=== PATIENT | female | born 1970 | race Caucasian/White ===

== ENCOUNTER 2018-04-13 05:50 | Emergency (ER) | payer OTHER, SELFPAY ==
[2018-04-13 05:58] VITALS: BP 149/86; PULSE 93; RESP 15; TEMP 36.3; O2SAT 97
--- NOTE | 2018-04-13 06:08 | W.ED.GENAD ---
Discharge Plan Disposition Patient Disposition: HOME Condition: Good Discharge Details Chief Complaint: RespSymp Clinical Impression: URI (upper respiratory infection), Acute right otitis media Primary Care Provider: Claritza Winter ED Provider: Rishi Aguiar Home Meds and New Rx's Prescriptions: New azithromycin 250 mg tablet See Label Instructions .ROUTE .COMPLEX Qty: 6 RF: 0 No Action levothyroxine 125 MCG tablet 125 mcg PO DAILY RF: 0 naproxen sodium [Aleve] 220 MG capsule 660 mg PO DAILY RF: 0 omeprazole 40 MG capsule,delayed release(DR/EC) 40 mg PO DAILY RF: 0 sertraline 25 MG tablet 25 mg PO DAILY RF: 0 cyclobenzaprine 10 MG tablet 10 mg PO Q8H PRN PRN (Reason: Pain) Qty: 20 RF: 0 Discharge Instructions Instructions: Otitis Media (ED) Additional Instructions: If you do not notice any improvement of your symptoms over the next 24 hours please take the antibiotic as directed. If you notice any worsening of your symptoms, or any new symptoms such as vomiting, diarrhea, fever, chills, shortness of breath, chest pain, numbness, weakness, or fainting , please return immediately to the emergency department for reevaluation. Please follow up with your primary care provider as soon as possible for reassessment and reevaluation. As always, it was a pleasure participating in your medical care today. Referrals: Claritza Winter [Primary Care Provider] - Medical Decision Making This is a pleasant 47-year-old female who presents with complaint of right ear pain, cough, and mild congestion. Physical exam demonstrates a right-sided otitis media, no concerning lung sounds, vital signs are reassuring with no significant tachycardia tachypnea or hypoxemia. No signs of meningitis, nuchal rigidity or other abnormality. Patient signs and symptoms are clinically consistent with an upper respiratory infection and otitis media. I feel it is most likely viral in origin, however due to the notable severity of the otitis media do feel that antibiotics are reasonable. Patient has a penicillin allergy. Will prescribe azithromycin with recommendations to take if she does not have improvement in the next 24-48 hours. We discussed red flags for which to return and the patient understands. I have extensively reviewed the treatment plan and discharge instructions with the patient and their family. I have addressed all patient concerns at this time. The patient and family was made aware of what symptoms to monitor for that would warrant a return to the emergency department. Discussed the plan with the patient and family, they demonstrate verbal understanding and agreement with our assessment and plan at this time. HPI General Date/Time Provider Initiated Documentation: 04/13/18 06:01. HPI Narrative: This is a 47-year-old female who presents today for evaluation of cough, congestion, and right ear pain. The cough and congestion with mild sore throat started 2 days ago, she noticed some right-sided ear pain that started this morning. She denies any difficulty swallowing, difficulty breathing, chest pain or shortness of breath. She denies any significant hearing difficulties. She denies any associated fever. Has an allergy to Tylenol and ibuprofen however she has been taking DayQuil and NyQuil at home without difficulty. Patient denies any other associated symptoms. Patient denies any neck pain or neck stiffness. She does states she has noted some mild improvement with the NyQuil and DayQuil. Patient denies any recent surgeries. Patient denies any IV or illicit drug use or any pertinent family history. Patient does smoke, but has not been able to for the last few days secondary to feeling ill. Related Data Home Medications Medication Instructions Recorded Confirmed levothyroxine 125 mcg PO DAILY 10/16/13 05/18/17 naproxen sodium [Aleve] 660 mg PO DAILY 10/16/13 05/18/17 omeprazole 40 mg PO DAILY 03/15/15 05/18/17 cyclobenzaprine 10 mg PO Q8H PRN PRN #20 tab 03/09/17 05/18/17 sertraline 25 mg PO DAILY 03/09/17 05/18/17 azithromycin See Label Instructions .ROUTE 04/13/18 .COMPLEX #6 tab Previous Rx's Medication Instructions Recorded cyclobenzaprine 10 mg PO Q8H PRN PRN #20 tab 03/09/17 azithromycin See Label Instructions .ROUTE 04/13/18 .COMPLEX #6 tab Allergies Allergy/AdvReac Type Severity Reaction Status Date / Time aspirin Allergy Severe Anaphylaxsi Unverified 04/13/18 06:02 s Penicillins Allergy Intermediate Hives Unverified 04/13/18 06:02 acetaminophen [From Tylenol] Allergy Mild Skin Rash Unverified 04/13/18 06:02 ibuprofen Allergy Mild Skin Rash Unverified 04/13/18 06:02 latex Allergy Mild Skin Rash Unverified 04/13/18 06:02 venom-honey bee Allergy Mild Unverified 04/13/18 06:02 [bee venom (honey bee)] General Stated Complaint: RespSymp ZAK: 4 Review of Systems Review of Systems All systems reviewed & are unremarkable except as noted in HPI and below PFSH Hypothyroidism Obesity Tobacco dependence EGD - IV Sedation (03/15/15) Medical History Hypothyroidism Obesity Tobacco dependence Social History Smoking/Tobacco Use Status: Current every day Surgical History EGD - IV Sedation (03/15/15) Social History Smoking/Tobacco Use Status: Current every day Exam Narrative Exam Narrative: 1.Const: Well-nourished, Well-developed, appearing stated age 2.Eyes: PERRL, no conjunctival injection, and symmetrical lids. 3.ENT: Atraumatic external nose and ears. Moist MM. Neck: Symmetric, trachea midline, No thyromegaly. No evidence of significant oropharyngeal erythema, tonsillar exudates, posterior oropharynx airway compromise, or other abnormalities. No significant cervical lymphadenopathy. Left tympanic membrane is normal, right tympanic membrane demonstrates erythema, effusion, and bulging of the TM. Patient demonstrates good movement of cervical neck. There is no nuchal rigidity, no nuchal tenderness. Patient is able to flex the neck without any difficulty or significant pain. Negative Kernig's and Brudzinski sign. 4.CVS: +S1/S2, No murmurs or gallops. Peripheral pulses 2+ and equal in all extremities. Brisk capillary refill in all extremities. 5.RESP: Unlabored respiratory effort. Clear to auscultation bilaterally. No wheezes rales or rhonchi 6.GI: Soft, Nontender/Nondistended, No hepatosplenomegaly. No guarding or rebound. 7.MSK: Normocephalic/Atraumatic, Extremities w/o deformity or ttp No cyanosis or clubbing, Normal movement of all extremities 8.Skin: Warm, Dry. No rashes or lesions. 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 Sensation grossly intact, no focal neurologic deficits. 10.Psych: (AAO) x3. Appropriate mood and affect Course Vital Signs Temperature 36.3 C L 04/13/18 05:58 Pulse 93 H 04/13/18 05:58 Respiratory Rate 15 04/13/18 05:58 Blood Pressure 149/86 H 04/13/18 05:58 Pulse Oximetry 97 04/13/18 05:58 Temperature 36.3 C L 04/13/18 05:58 Temperature Source Temporal Artery Scan 04/13/18 05:58 Pulse 93 H 04/13/18 05:58 Respiratory Rate 15 04/13/18 05:58 Respiratory Effort Non-Labored 04/13/18 06:01 Respiratory Depth Normal 04/13/18 06:01 Blood Pressure 149/86 H 04/13/18 05:58 Blood Pressure Position Sitting 04/13/18 05:58 Pulse Oximetry 97 04/13/18 05:58 Oxygen Delivery Method Room Air 04/13/18 05:58 Oxygen Flow Rate 0 04/13/18 05:58 Pain Level 5 04/13/18 05:58
[2018-04-13 06:18] VITALS: BP 149/86; PULSE 93; RESP 15; TEMP 36.3; O2SAT 97
== END 2018-04-13 06:18 | disposition home or self-care (01) ==
LOC: ER 06:21
PROVIDERS: Emergency Provider Student in an Organized Health Care Education/Training Program; PCP Nurse Practitioner Family
DX: J06.9 Acute upper respiratory infection, unspecified (principal); H66.91 Otitis media, unspecified, right ear
CPT/HCPCS: 99283

== ENCOUNTER 2018-05-15 07:01 | Emergency (ER) | payer OTHER, SELFPAY ==
[2018-05-15 07:04] VITALS: BP 138/79; PULSE 92; RESP 18; TEMP 36.5; O2SAT 100
[2018-05-15] MEDS: Naproxen 250 MG TAB 500 MG PO (07:28)
[2018-05-15] MEDS: Cyclobenzaprine 10 MG TAB PO (07:28)
--- NOTE | 2018-05-15 07:34 | ED.GENADUL_ITS ---
Discharge Plan Disposition Patient Disposition: HOME Condition: Good Discharge Details Chief Complaint: Nk/Back Pain Clinical Impression: Lower back injury Primary Care Provider: Claritza Winter ED Provider: Jordon Solo Meds and New Rx's Prescriptions: New cyclobenzaprine 10 mg tablet 10 mg PO TID PRN (Reason: muscle spasm) Qty: 20 RF: 0 Continued levothyroxine 125 MCG tablet 125 mcg PO DAILY RF: 0 omeprazole 40 MG capsule,delayed release(DR/EC) 40 mg PO DAILY RF: 0 hydroxychloroquine 200 mg Tablet 200 mg PO BID RF: 0 sertraline 25 MG tablet 25 mg PO DAILY RF: 0 Changed naproxen sodium [Aleve] 220 MG capsule 2 tab PO BID Qty: 0 RF: 0 Discharge Instructions Additional Instructions: Take it easy over the weekend locus but stay active. Aleve twice a day. Flexeril as needed. Heat is likely to help. Follow-up with primary care on Friday for reevaluation. Return to the emergency department for worsening pain, abdominal pain, bladder or bowel dysfunction, numbness or tingling, weakness. Stand Alone Forms: Work Release Referrals: Claritza Winter [Primary Care Provider] - Medical Decision Making Patient presenting with left lower back/buttock pain related to twisting injury yesterday. She has no neurologic symptoms and no neurologic findings. Strength is normal though range of motion is limited due to pain. Sensation to intact. She is able to ambulate but limps because of pain. She tolerates Naprosyn. She has also been on Flexeril in the past. She will be started on both of these again. She has no spinal tenderness and did not actually strike the ground. X- rays not indicated. Follow-up with primary care on Friday for reevaluation. Off over the weekend. Return to ED for worsening pain, abdominal pain, neurologic changes. HPI General Mode of arrival: ambulatory . Date/Time Provider Initiated Documentation: 05/15/18 07:17 . Limitations to Documentation: no limitations . Information obtained by: patient . HPI Narrative: Patient presents to ED with a left buttock pain radiating down to about the knee. Patient reports slipping on the ice and twisting yesterday. She had some pain yesterday but did not think much of it. She did not actually fall and hit the ground. This morning she has had increased pain and discomfort posteriorly. She has decreased range of motion. Trying to drive to work was very painful. She has no neurologic symptoms. She denies numbness, weakness, bladder or bowel dysfunction. She denies upper back pain, chest pain, abdominal pain. She did try to go to work but did not tolerate it and came here for evaluation. Related Data Home Medications Medication Instructions Recorded Confirmed levothyroxine 125 mcg PO DAILY 10/16/13 05/15/18 omeprazole 40 mg PO DAILY 03/15/15 05/15/18 sertraline 25 mg PO DAILY 03/09/17 05/15/18 cyclobenzaprine 10 mg PO TID PRN #20 tab 05/15/18 hydroxychloroquine 200 mg PO BID 05/15/18 05/15/18 naproxen sodium [Aleve] 2 tab PO BID #0 cap 05/15/18 05/15/18 Previous Rx's Medication Instructions Recorded cyclobenzaprine 10 mg PO TID PRN #20 tab 05/15/18 naproxen sodium [Aleve] 2 tab PO BID #0 cap 05/15/18 Allergies Allergy/AdvReac Type Severity Reaction Status Date / Time aspirin Allergy Severe Anaphylaxsi Unverified 05/15/18 07:11 s Penicillins Allergy Intermediate Hives Unverified 05/15/18 07:11 acetaminophen [From Tylenol] Allergy Mild Skin Rash Unverified 05/15/18 07:11 ibuprofen Allergy Mild Skin Rash Unverified 05/15/18 07:11 latex Allergy Mild Skin Rash Unverified 05/15/18 07:11 venom-honey bee Allergy Mild Unverified 05/15/18 07:11 [bee venom (honey bee)] General Stated Complaint: Nk/Back Pain ZAK: 4 Review of Systems Constitutional Denies fever(s) and Denies weakness Cardiovascular Denies chest pain and Denies dyspnea Respiratory Denies cough and Denies dyspnea Gastrointestinal Denies abdominal pain, Denies nausea and Denies vomiting Genitourinary Denies difficulty voiding, Denies dysuria, Denies pelvic pain, Denies flank pain, Denies urinary hesitancy and Denies urinary urgency Musculoskeletal Reports back pain, Reports limited range of motion, Denies muscle weakness, Denies numbness and Denies tingling Integumentary/Breasts Denies rash Neurologic Denies focal weakness, Denies numbness, Denies sensory deficit, Denies tingling, Denies paresthesias and Denies weakness PFSH Medical History Hypothyroidism Obesity Tobacco dependence Surgical History EGD - IV Sedation (03/15/15) Social History Smoking/Tobacco Use Status: Current every day Exam Const General: cooperative and uncomfortable Nutritional Appearance: obese morbidly obese Orientation: alert and oriented x3 HENMT Head: normocephalic and atraumatic Neck Neck: trachea midline and supple Back/Spine/Pelvis Back: no CVA tenderness and back tenderness Thoracic/Lumbar Spine: bend over test abnormal (unable to bend over), pain with thoraco-lumbar ROM, thoraco-lumbar ROM limited, No thoracic spinal tenderness and No lumbar spinal tenderness Pelvis: buttock tenderness on the left Neuro General: alert, oriented x3, no focal motor deficits and CN's II-XI intact bilaterally Sensory Exam: no sensory deficits noted Course Vital Signs Temperature 97.7 F 05/15/18 07:04 Pulse 92 H 05/15/18 07:04 Respiratory Rate 18 05/15/18 07:04 Blood Pressure 138/79 05/15/18 07:04 Pulse Oximetry 100 05/15/18 07:04 Temperature 97.7 F 05/15/18 07:04 Temperature Source Temporal Artery Scan 05/15/18 07:04 Pulse 92 H 05/15/18 07:04 Respiratory Rate 18 05/15/18 07:04 Respiratory Effort Non-Labored 05/15/18 07:10 Blood Pressure 138/79 05/15/18 07:04 Blood Pressure Position Sitting 05/15/18 07:04 Pulse Oximetry 100 05/15/18 07:04 Oxygen Delivery Method Room Air 05/15/18 07:04 Oxygen Flow Rate 0 05/15/18 07:04 Pain Level 5 05/15/18 07:14
== END 2018-05-15 07:47 | disposition home or self-care (01) ==
PROVIDERS: Emergency Provider Emergency Medicine; PCP Nurse Practitioner Family
DX: M54.5 Low back pain (principal)
CPT/HCPCS: 99283

== ENCOUNTER 2018-07-29 16:12 | Outpatient (REF) | payer OTHER, SELFPAY ==
[2018-07-29 22:59] LABS: FREE T4 0.76 ng/dL (0.76-1.46)
== END 2018-07-29 16:32 ==
LOC: NCHCN 16:12
PROVIDERS: PCP Nurse Practitioner Family; Visit Provider Nurse Practitioner Family
DX: E03.9 Hypothyroidism, unspecified (principal)
CPT/HCPCS: 84439; 84443

== ENCOUNTER 2018-09-16 08:35 | Outpatient (REF) | payer OTHER, SELFPAY ==
[2018-09-16 12:52] LABS: TSH (W/Ref FT4) 0.26 uIU/mL (0.358-3.74)
[2018-09-16 13:45] LABS: FREE T4 1.33 ng/dL (0.76-1.46)
== END 2018-09-16 08:55 ==
LOC: NCHCN 08:35
PROVIDERS: PCP Nurse Practitioner Family; Visit Provider Nurse Practitioner Family
DX: E03.9 Hypothyroidism, unspecified (principal)
CPT/HCPCS: 84439; 84443

== ENCOUNTER 2018-11-02 12:04 | Outpatient (REF) | payer OTHER, SELFPAY ==
[2018-11-02 21:32] LABS: TSH (W/Ref FT4) 0.48 uIU/mL (0.358-3.74)
== END 2018-11-02 12:24 ==
LOC: NCHCN 12:04
PROVIDERS: PCP Nurse Practitioner Family; Visit Provider Nurse Practitioner Family
DX: E03.9 Hypothyroidism, unspecified (principal)
CPT/HCPCS: 84443

== ENCOUNTER 2019-06-24 09:47 | Outpatient (REF) | payer OTHER, SELFPAY ==
[2019-06-24 12:55] LABS: TSH (W/Ref FT4) 3.41 uIU/mL (0.36-3.74)
== END 2019-06-24 10:07 ==
LOC: NCHCN 09:47
PROVIDERS: PCP Nurse Practitioner Family; Visit Provider Nurse Practitioner Family
DX: E03.9 Hypothyroidism, unspecified (principal)
CPT/HCPCS: 84443

== ENCOUNTER 2019-06-25 11:23 | Outpatient (REF) | payer OTHER, SELFPAY ==
--- NOTE | 2019-06-25 10:40 | PAPFT_PTH ---
PATIENT: Dari Montano LOC: [facility]#:[id number] AGE/SX: 48/F ROOM: RE06/25/[address]: Claritza Winter : 1970 BED: DIS: 06/25/2019 SPEC #: [id number] RECD: 06/25/19 12:56 STATUS: ELVER RECampos #: [id number] REINA: 06/25/19 10:[address]: Claritza Winter DEPT: [facility] Cytology RECD BY: Claire Leahy Tissues: 1 - CX/ENDOCX FOR PAP SMEARS Procedures: PAP THIN PREP/UVM Screening HPV DNA PROBE Comments: [id number]
== END 2019-06-25 11:43 ==
LOC: NCHCN 11:23
PROVIDERS: PCP Nurse Practitioner Family; Visit Provider Nurse Practitioner Family
DX: Z00.00 Encounter for general adult medical examination without abnormal findings (principal); Z12.4 Encounter for screening for malignant neoplasm of cervix; Z01.419 Encounter for gynecological examination (general) (routine) without abnormal findings; Z11.51 Encounter for screening for human papillomavirus (HPV)
CPT/HCPCS: 88142; 87624

== ENCOUNTER 2019-06-28 09:22 | Outpatient (CLI) | payer OTHER, SELFPAY ==
[2019-06-28 09:53] LABS: HCT 37.1 % (36.0-46.0); HGB 12.5 g/dL (12.0-15.5); Mean Corp. HGB Concentration 33.7 g/dL (32.0-36.0); Mean Corpuscular Hemoglobin 31.4 pg (27.0-33.0); Mean Corpuscular Volume 93.2 fL (80-95); Mean Platelet Volume 9.1 fL (8.0-11.0); Platelet Count 357 x1000/uL (130-400); RBC 3.98 m/cumm (4.00-5.20); RBC Distribution Width 14.3 % (11.7-14.6); White Blood Cell Count 12.74 k/cumm (4.4-10.8)
[2019-06-28 10:57] LABS: ALT 40 U/L (14-59); AST 22 U/L (15-37)
[2019-06-28 10:58] LABS: Cholesterol 203 mg/dL (<200); Triglyceride 302 mg/dL (<150)
== END 2019-06-28 09:42 ==
PROVIDERS: PCP Nurse Practitioner Family; Visit Provider Dermatology
DX: L40.0 Psoriasis vulgaris (principal); Z79.899 Other long term (current) drug therapy
CPT/HCPCS: 36415; 85027; 82465; 84450; 84460; 84478

== ENCOUNTER 2019-09-07 11:32 | Outpatient (REF) | payer OTHER, SELFPAY ==
[2019-09-08 09:09] LABS: COVID-19 RT-PCR UVMMC Result Negative (Negative)
== END 2019-09-07 11:52 ==
LOC: LBN 11:32
PROVIDERS: PCP Nurse Practitioner Family; Visit Provider Nurse Practitioner Adult Health
DX: Z11.59 Encounter for screening for other viral diseases (principal)
CPT/HCPCS: U0003

== ENCOUNTER 2019-09-30 04:18 | Outpatient (CLI) | payer OTHER, SELFPAY ==
[2019-09-30 07:24] LABS: HCT 37.3 % (36.0-46.0); HGB 12.7 g/dL (12.0-15.5); Mean Corpuscular Hemoglobin 32.7 pg (27.0-33.0); Mean Corpuscular Volume 96.1 fL (80-95); Mean Platelet Volume 9.5 fL (8.0-11.0); Platelet Count 285 x1000/uL (130-400); RBC 3.88 m/cumm (4.00-5.20); RBC Distribution Width 14.5 % (11.7-14.6); White Blood Cell Count 7.77 k/cumm (4.4-10.8)
[2019-09-30 08:11] LABS: ALT 73 U/L (14-59); AST 37 U/L (15-37)
[2019-09-30 08:14] LABS: Cholesterol 186 mg/dL (<200); Triglyceride 184 mg/dL (<150)
== END 2019-09-30 04:38 ==
PROVIDERS: PCP Nurse Practitioner Family; Visit Provider Dermatology
DX: L40.0 Psoriasis vulgaris (principal); Z79.899 Other long term (current) drug therapy
CPT/HCPCS: 36415; 85027; 82465; 84450; 84460; 84478

== ENCOUNTER 2019-10-22 09:25 | Outpatient (REF) | payer OTHER, SELFPAY ==
[2019-10-25 12:23] LABS: COVID-19 RT-PCR Result NEGATIVE (Negative)
== END 2019-10-22 09:45 ==
LOC: LBN 09:25
PROVIDERS: PCP Nurse Practitioner Family; Visit Provider Nurse Practitioner Adult Health
DX: Z20.828 Contact with and (suspected) exposure to other viral communicable diseases (principal)
CPT/HCPCS: U0003

== ENCOUNTER 2019-11-03 09:20 | Outpatient (REF) | payer OTHER, SELFPAY ==
[2019-11-06 07:20] LABS: SARS-CoV-2 RNA Undetected (Undetected); SARS-CoV-2 Specimen Source Nasopharynx
== END 2019-11-03 09:40 ==
LOC: LBN 09:20
PROVIDERS: PCP Nurse Practitioner Family; Visit Provider Nurse Practitioner Adult Health
DX: Z11.59 Encounter for screening for other viral diseases (principal)
CPT/HCPCS: U0003

== ENCOUNTER 2020-01-20 03:08 | Outpatient (CLI) | payer OTHER, SELFPAY ==
[2020-01-20 10:18] LABS: Abs Immature Grans 0.02 10^3/uL (0.0-0.06); Absolute Basophil Count 0.08 10^3/uL (0.0-0.2); Absolute Eosinophil Count 0.44 10^3/uL (0.0-0.7); Absolute Lymphocyte Count 2.69 10^3/uL (1.2-3.4); Absolute Monocyte Count 0.59 10^3/uL (0.1-0.8); Absolute Neutrophil Count 5.38 10^3/uL (1.2-6.7); Basophils % 0.9; Eosinophils % 4.8; HCT 36.8 % (36.0-46.0); HGB 12.3 g/dL (11.2-15.7); Immature Grans % 0.2; Lymphocytes % 29.2; MCH 32.2 pg (27.0-33.0); MCHC 33.4 % (32.0-36.0); MCV 96.3 fL (80-95); MPV 10.4 fL (8.0-11.0); Monocytes % 6.4; Neutrophils % 58.5; Nucleated RBC 0 %; Platelet Count 289 10^3/uL (130-400); RBC 3.82 10^6/uL (3.93-5.22); RDW 14.3 % (11.7-14.6); RDW-SD 50.1 fL
[2020-01-20 10:47] LABS: ALT 66 U/L (14-59); AST 30 U/L (15-37)
[2020-01-20 10:49] LABS: Cholesterol 195 mg/dL (<200); Triglyceride 387 mg/dL (<150)
== END 2020-01-20 03:28 ==
PROVIDERS: PCP Nurse Practitioner Family; Visit Provider Dermatology
DX: L40.0 Psoriasis vulgaris (principal); Z79.899 Other long term (current) drug therapy
CPT/HCPCS: 36415; 82465; 84450; 84460; 84478; 85025

== ENCOUNTER 2020-04-21 04:51 | Outpatient (CLI) | payer OTHER, SELFPAY ==
[2020-04-21 08:56] LABS: HGB 12.6 g/dL (11.2-15.7); MCH 32.2 pg (27.0-33.0); MCHC 33.2 % (32.0-36.0); MCV 97.2 fL (80-95); MPV 9.7 fL (8.0-11.0); Platelet Count 308 10^3/uL (130-400); RBC 3.91 10^6/uL (3.93-5.22); RDW 13.9 % (11.7-14.6); RDW-SD 48.9 fL; WBC 8.55 10^3/uL (4.4-10.8)
[2020-04-21 10:33] LABS: Cholesterol 211 mg/dL (<200); Triglyceride 244 mg/dL (<150)
[2020-04-21 10:37] LABS: ALT 51 U/L (14-59); AST 26 U/L (15-37)
== END 2020-04-21 05:11 ==
PROVIDERS: PCP Nurse Practitioner Family; Visit Provider Dermatology
DX: L40.0 Psoriasis vulgaris (principal); Z79.899 Other long term (current) drug therapy
CPT/HCPCS: 36415; 85027; 82465; 84450; 84460; 84478; 85025

== ENCOUNTER 2020-04-21 22:53 | Outpatient (REF) | payer OTHER, SELFPAY ==
[2020-04-21 22:12] LABS: ALT 52 U/L (14-59); AST 26 U/L (15-37); Albumin 3.9 g/dL (3.4-5.0); Alkaline Phosphatase 79 U/L (46-116); Anion Gap 9.8 mmol/L (3-11); BUN 18 mg/dL (7-18); Bilirubin, Total 0.2 mg/dL (0.2-1.0); CO2 27.2 mmol/L (21.0-32.0); CREATININE 0.92 mg/dL (0.55-1.02); Calcium 8.7 mg/dL (8.5-10.1); Calculated LDL 124 mg/dL (<100); Chloride 104 mmol/L (98-107); Cholesterol 213 mg/dL (<200); Glucose 98 mg/dL (74-106); HDL Cholesterol 30 mg/dL (40-60); Potassium 4.3 mmol/L (3.5-5.1); Sodium 141 mmol/L (136-145); TSH (W/Ref FT4) 4.83 uIU/mL (0.36-3.74); Total Protein 6.8 g/dL (6.4-8.2); Triglyceride 299 mg/dL (<150)
[2020-04-21 22:50] LABS: Hemoglobin A1C 5.7 % (<5.7)
[2020-04-22 00:08] LABS: FREE T4 1.04 ng/dL (0.76-1.46)
[2020-04-24 10:48] LABS: HIV-1/2 Ag & Ab Screen Negative (Negative)
[2020-04-24 14:15] LABS: HCV RNA Qualitative Undetected (Undetected)
== END 2020-04-21 23:13 ==
LOC: NCHCN 22:53
PROVIDERS: PCP Nurse Practitioner Family; Visit Provider Nurse Practitioner Family
DX: Z00.00 Encounter for general adult medical examination without abnormal findings (principal); R42 Dizziness and giddiness; K30 Functional dyspepsia; R05 Cough; Z13.1 Encounter for screening for diabetes mellitus; Z11.59 Encounter for screening for other viral diseases; Z11.4 Encounter for screening for human immunodeficiency virus [HIV]
CPT/HCPCS: 80053; 80061; 87389; 87522; 83036; 84439; 84443

== ENCOUNTER 2020-06-01 11:36 | Emergency (ER) | payer OTHER, SELFPAY ==
[2020-06-01 11:44] VITALS: BP 144/84; PULSE 103; RESP 18; TEMP 36.2; O2SAT 96
--- NOTE | 2020-06-01 12:05 | ED.GENADUL_ITS ---
Discharge Plan Disposition Patient Disposition: HOME Condition: Stable Discharge Details Clinical Impression: Acute knee pain Primary Care Provider: Claritza Winter ED Provider: Vikash Villatoro Home Meds and New Rx's Prescriptions: Continued levothyroxine 125 MCG tablet 125 mcg PO DAILY RF: 0 omeprazole 40 MG capsule,delayed release(DR/EC) 40 mg PO DAILY RF: 0 sertraline 25 MG tablet 25 mg PO DAILY RF: 0 methotrexate sodium 2.5 mg tablet See Rx Instructions .ROUTE .COMPLEX RF: 0 Discharge Instructions Instructions: Knee Pain (ED) Additional Instructions: X-ray is unremarkable. Use crutches and wear knee immobilizer as needed, advance activity as tolerated. Rest, elevate, cool compresses every 2 hours for 20 minutes. [id number] Tylenol as directed for discomfort. Please watch for new or worsening symptoms and return to the ER for any concerns. Lastly, I have given you the name and number of our local orthopedic provider and placed you on the orthopedic list. Please contact his office at your convenience for prompt outpatient reevaluation. Referrals: Robert Chen MD [ [facility] STAFF PHYSICIAN] - Discharge Data Discharge Date/Time-TO BE ENTERED AT DEPARTURE: 06/01/20 14:42 Medical Decision Making This is a 49-year-old female who felt a sudden pop and pain in her left knee while stepping out of a doorway. There was no fall to the ground or any real twisting mechanism. The presentation is interesting as it was acute in onset without any real trauma. She appears uncomfortable but nontoxic. Neuro, vascular, tendon intact. The knee exam is extremely guarded making for a difficult examination. She is afebrile, there is no erythema, warmth, no evidence of infection. Skin is intact. Patient has a negative Homans' sign. Extremely low suspicion for DVT, septic joint, cellulitis, etc. given her presentation. Will obtain x-ray for further evaluation of potential pathologic fracture, effusion, etc. Clinically this appears a more soft tissue in nature. Patient offered analgesia but declines. X-ray read by radiology as negative for acute fracture or dislocation. There is a joint effusion present. Discussed x-ray findings with patient. We discussed disposition. We will place the patient into a long-leg knee immobilizer and crutches, advancing activity as tolerated. She does not want a prescription for any additional pain medication and will focus on resting, elevating, [id number] Tylenol, etc. She was encouraged to return to the ER for new or worsening symptoms. I have placed her onto the orthopedic list and have given her the name and number of our local orthopedic team to help expedite outpatient care. Medical Records Medical records reviewed: Yes I reviewed the patient's medical records. HPI General Mode of arrival: wheelchair . Date/Time Provider Initiated Documentation: 06/01/20 11:38 . Limitations to Documentation: no limitations . Information obtained by: patient . HPI Narrative: This is a 49-year-old female, history of lupus, thyroid disease, presenting with acute left lateral knee pain. She states just prior to arrival she was stepping out of a doorway, and felt a sharp pain in her left knee. She denies falling to the ground, twisting, or really any traumatic injury. She states the pain is severe although she is able to bear weight. Reports that there is increased pain with movement, bearing weight, wiggling her toes. She feels occasional tingling in her toes. She denies any previous injury to the knee. She also denies any other injury. Denies any redness of her calf, swelling, pain. Denies chest pain or shortness of breath. She took a single Vicodin that she had left over at home. She describes hearing and feeling a popping sensation. Related Data Home Medications Medication Instructions Recorded Confirmed levothyroxine 125 mcg PO DAILY 10/16/13 06/01/20 omeprazole 40 mg PO DAILY 03/15/15 06/01/20 sertraline 25 mg PO DAILY 03/09/17 06/01/20 methotrexate sodium See Rx Instructions .ROUTE .COMPLEX 06/01/20 06/01/20 Allergies Allergy/AdvReac Type Severity Reaction Status Date / Time aspirin Allergy Severe Anaphylaxsi Unverified 06/01/20 11:46 s Penicillins Allergy Intermediate Hives Unverified 06/01/20 11:46 acetaminophen [From Tylenol] Allergy Mild Skin Rash Unverified 06/01/20 11:46 ibuprofen Allergy Mild Skin Rash Unverified 06/01/20 11:46 latex Allergy Mild Skin Rash Unverified 06/01/20 11:46 venom-honey bee Allergy Mild Unverified 06/01/20 11:46 [bee venom (honey bee)] General Stated Complaint: Orthopedic ZAK: 3 Review of Systems Constitutional Constitutional: Denies fever(s) Cardiovascular Cardiovascular: Denies chest pain and Denies dyspnea Respiratory Respiratory: Denies dyspnea Musculoskeletal Musculoskeletal: Reports arthralgias, Denies numbness, Reports stiffness and Reports tingling Integumentary/Breasts Skin/Breast: Denies erythema Neurologic Neurologic: Denies numbness and Reports tingling PFSH Medical History Hypothyroidism Obesity Tobacco dependence Surgical History EGD - IV Sedation (03/15/15) DR.TERRY SCHWAB Social History Smoking/Tobacco Use Status: Current every day Tobacco Type: cigarettes Smoking risk assessment performed?: Yes Alcohol Intake: never Drug use: Never Substance use type: does not use Do you feel safe at home: Yes Do you feel safe in your relationship?: Yes Exam Const General: cooperative, healthy appearing and no acute distress Orientation: alert and awake HENCA Head: normal to inspection, normocephalic and atraumatic Eyes General: appearance normal, both eyes and all related structures Conjunctivae: conjunctivae normal Sclera: sclerae normal Neck Neck: normal visual inspection, full ROM, trachea midline and supple Resp Effort & Inspection: normal respiratory effort and able to speak in complete sentences Auscultation: clear to auscultation bilaterally Cardio Rate: regular rate Rhythm: regular rhythm Back/Spine/Pelvis Back: No back tenderness Skin General skin exam: no rashes or lesions noted Neuro General: patient alert, patient awake, moves all extremities and no focal motor deficits Cognition: normal cognition Speech: speech normal Gait: antalgic Motor: muscle tone normal throughout Sensory Exam: no sensory deficits noted Extrem Left lower extremity: normal to inspection, normal capillary refill, hip/thigh Details: normal to inspection and normal ROM; no tenderness and no swelling and knee (Examination is extremely guarded, making for difficult exam) Details: normal to inspection, tenderness, abnormal ROM Details: held in an abnormal fashion Details: in extension, pain with active ROM and with range as follows (Full extension, limited flexion secondary to pain) and knee ligament exam abnormal Details: anterior drawer test Details: pain noted, valgus stress test Details: pain noted and varus stress test Details: pain noted; no swelling Other: Calf unremarkable. Negative Homans' sign. Neuro, vascular, tendon intact. Psych Appearance: grossly normal Mental Status: mental status grossly normal Course Vital Signs Vital signs: Vital Signs Temperature 36.2 C L 06/01/20 11:44 Pulse 103 H 06/01/20 11:44 Respiratory Rate 18 06/01/20 11:44 Blood Pressure 144/84 H 06/01/20 11:44 Pulse Oximetry 96 06/01/20 11:44 Temperature 36.2 C L 06/01/20 11:44 Temperature Source Skin 06/01/20 11:44 Pulse 103 H 06/01/20 11:44 Respiratory Rate 18 06/01/20 11:44 Respiratory Effort Non-Labored 06/01/20 11:49 Blood Pressure 144/84 H 06/01/20 11:44 Blood Pressure Position Sitting 06/01/20 11:44 Pulse Oximetry 96 06/01/20 11:44 Oxygen Delivery Method Room Air 06/01/20 11:44 Oxygen Flow Rate 0 06/01/20 11:44 Pain Level 8 06/01/20 11:44
--- NOTE | 2020-06-01 12:15 | DI.RAD_ITS ---
EXAM: XR KNEE LT 4V+ CLINICAL HISTORY: stepped, heard pop, 10/10 pain lateral. TECHNIQUE: 2D digital imaging was performed. COMPARISON: No exams were available for comparison FINDINGS: BONES: No acute fracture is present. No bony destructive lesion is seen. JOINTS: The knee is normally aligned. Joint effusion. SOFT TISSUE: Normal. IMPRESSION: No acute fracture or dislocation. Joint effusion is present. DATA REPOSITORY: RADIATION DOSE DELIVERED:
== END 2020-06-01 14:42 | disposition home or self-care (01) ==
PROVIDERS: Emergency Provider Physician Assistant; PCP Nurse Practitioner Family
DX: M25.562 Pain in left knee (principal)
CPT/HCPCS: 29505; 99283; 73564

== ENCOUNTER 2020-07-17 04:20 | Outpatient (CLI) | payer OTHER, SELFPAY ==
[2020-07-17 09:43] LABS: HCT 39.2 % (36.0-46.0); MCH 32.1 pg (27.0-33.0); MCHC 33.2 % (32.0-36.0); MCV 96.8 fL (80-95); MPV 9.5 fL (8.0-11.0); Platelet Count 327 10^3/uL (130-400); RBC 4.05 10^6/uL (3.93-5.22); RDW 14.2 % (11.7-14.6); RDW-SD 50.4 fL; WBC 9.42 10^3/uL (4.4-10.8)
[2020-07-17 10:52] LABS: Cholesterol 197 mg/dL (<200); Triglyceride 249 mg/dL (<150)
[2020-07-17 11:00] LABS: ALT 55 U/L (14-59); AST 27 U/L (15-37); BUN 13 mg/dL (7-18); CREATININE 0.7 mg/dL (0.55-1.02); TSH (W/Ref FT4) 5.57 uIU/mL (0.36-3.74)
[2020-07-17 11:18] LABS: FREE T4 1.13 ng/dL (0.76-1.46)
== END 2020-07-17 04:21 | disposition home or self-care (01) ==
LOC: LBO 04:20
PROVIDERS: PCP Nurse Practitioner Family; Visit Provider Dermatology
DX: L40.1 Generalized pustular psoriasis (principal); Z79.899 Other long term (current) drug therapy; R73.03 Prediabetes; E78.5 Hyperlipidemia, unspecified; F41.8 Other specified anxiety disorders; R05 Cough; K30 Functional dyspepsia; R13.10 Dysphagia, unspecified
CPT/HCPCS: 36415; 84520; 85027; 82465; 82565; 84439; 84443; 84450; 84460; 84478

== ENCOUNTER 2020-12-29 02:31 | Outpatient (CLI) | payer OTHER, SELFPAY ==
[2020-12-29 08:34] LABS: HCT 37.8 % (36.0-46.0); HGB 12.3 g/dL (11.2-15.7); MCH 32.1 pg (27.0-33.0); MCHC 32.5 % (32.0-36.0); MCV 98.7 fL (80-95); MPV 9.4 fL (8.0-11.0); Platelet Count 300 10^3/uL (130-400); RBC 3.83 10^6/uL (3.93-5.22); RDW-SD 50.4 fL; WBC 7.74 10^3/uL (4.4-10.8)
[2020-12-29 08:59] LABS: Hemoglobin A1C 5.9 % (<5.7)
[2020-12-29 09:24] LABS: ALT 47 U/L (14-59); AST 22 U/L (15-37)
[2020-12-29 09:52] LABS: Magnesium 1.9 mg/dL (1.8-2.4); TSH (W/Ref FT4) 3.86 uIU/mL (0.36-3.74); Vitamin B12 321 pg/mL (193-986)
[2020-12-29 10:13] LABS: FREE T4 1.16 ng/dL (0.76-1.46)
== END 2020-12-29 02:32 | disposition home or self-care (01) ==
LOC: LBO 02:31
PROVIDERS: PCP Nurse Practitioner Family; Visit Provider Dermatology
DX: E03.9 Hypothyroidism, unspecified (principal); R73.03 Prediabetes; E78.5 Hyperlipidemia, unspecified; F41.8 Other specified anxiety disorders; R13.10 Dysphagia, unspecified; K30 Functional dyspepsia; R05 Cough; L93.0 Discoid lupus erythematosus; M25.561 Pain in right knee; M25.562 Pain in left knee
CPT/HCPCS: 36415; 85027; 82607; 83036; 83735; 84439; 84443; 84450; 84460

== ENCOUNTER 2021-04-03 03:09 | Outpatient (CLI) | payer OTHER, SELFPAY ==
[2021-04-03 08:26] LABS: HCT 40.3 % (36.0-46.0); HGB 13.1 g/dL (11.2-15.7); MCHC 32.5 % (32.0-36.0); MCV 98.5 fL (80-95); MPV 9.8 fL (8.0-11.0); Platelet Count 307 10^3/uL (130-400); RBC 4.09 10^6/uL (3.93-5.22); RDW 14.4 % (11.7-14.6); RDW-SD 52.3 fL; WBC 6.87 10^3/uL (4.4-10.8)
[2021-04-03 08:53] LABS: ALT 65 U/L (14-59); AST 37 U/L (15-37); BUN 13 mg/dL (7-18); CREATININE 0.7 mg/dL (0.55-1.02)
[2021-04-03 09:04] LABS: Cholesterol 209 mg/dL (<200); Triglyceride 151 mg/dL (<150)
== END 2021-04-03 03:10 | disposition home or self-care (01) ==
LOC: LBO 03:09
PROVIDERS: PCP Nurse Practitioner Family; Visit Provider Dermatology
DX: L40.1 Generalized pustular psoriasis (principal); Z79.899 Other long term (current) drug therapy
CPT/HCPCS: 36415; 84520; 85027; 82465; 82565; 84450; 84460; 84478

== ENCOUNTER 2021-07-06 04:26 | Outpatient (CLI) | payer OTHER, SELFPAY | END 2021-07-06 04:27 | disposition home or self-care (01) | LOC: LBO 04:26 | PROVIDERS: PCP Nurse Practitioner Family; Visit Provider Dermatology ==

== ENCOUNTER 2021-07-13 03:44 | Outpatient (CLI) | payer OTHER, SELFPAY ==
[2021-07-13 09:01] LABS: HCT 39.6 % (36.0-46.0); HGB 12.7 g/dL (11.2-15.7); MCH 31.4 pg (27.0-33.0); MCHC 32.1 % (32.0-36.0); MPV 9.5 fL (8.0-11.0); Platelet Count 315 10^3/uL (130-400); RBC 4.04 10^6/uL (3.93-5.22); RDW 14.1 % (11.7-14.6); RDW-SD 50.8 fL
[2021-07-13 09:50] LABS: ALT 45 U/L (14-59); AST 22 U/L (15-37)
[2021-07-13 09:51] LABS: Cholesterol 223 mg/dL (<200); Triglyceride 145 mg/dL (<150)
== END 2021-07-13 03:45 | disposition home or self-care (01) ==
LOC: LBO 03:44
PROVIDERS: PCP Nurse Practitioner Family; Visit Provider Dermatology
DX: L40.1 Generalized pustular psoriasis (principal); Z79.899 Other long term (current) drug therapy
CPT/HCPCS: 36415; 85027; 82465; 84450; 84460; 84478

== ENCOUNTER 2021-07-16 10:41 | Outpatient (REF) | payer OTHER, SELFPAY ==
[2021-07-16 15:57] LABS: Hemoglobin A1C 6.1 % (<5.7)
[2021-07-16 16:09] LABS: Calculated LDL 105 mg/dL (<100); Cholesterol 201 mg/dL (<200); HDL Cholesterol 37 mg/dL (40-60); Magnesium 1.7 mg/dL (1.8-2.4); TSH (W/Ref FT4) 5.15 uIU/mL (0.36-3.74); Triglyceride 297 mg/dL (<150)
[2021-07-16 16:30] LABS: FREE T4 1.04 ng/dL (0.76-1.46)
[2021-07-16 22:37] LABS: Vitamin B12 259 pg/mL (211-911)
== END 2021-07-16 10:42 | disposition home or self-care (01) ==
LOC: NCHCN 10:41
PROVIDERS: PCP Nurse Practitioner Family; Visit Provider Nurse Practitioner Family
DX: K30 Functional dyspepsia (principal); R73.03 Prediabetes; E03.9 Hypothyroidism, unspecified; E66.9 Obesity, unspecified; M54.59 Other low back pain; L93.0 Discoid lupus erythematosus
CPT/HCPCS: 80061; 82607; 83036; 83735; 84439; 84443

== ENCOUNTER → 2021-09-19 00:03 | Outpatient (CLI) | payer OTHER, SELFPAY | PROVIDERS: PCP Nurse Practitioner Family; Visit Provider Nurse Practitioner Family ==

== ENCOUNTER 2021-09-28 14:49 | Outpatient (REF) | payer OTHER, SELFPAY | END 2021-09-28 14:50 | disposition home or self-care (01) | LOC: NCHCN 14:49 | PROVIDERS: PCP Nurse Practitioner Family; Visit Provider Nurse Practitioner Family | DX: E03.9 Hypothyroidism, unspecified (principal); F41.8 Other specified anxiety disorders; R73.03 Prediabetes; E78.5 Hyperlipidemia, unspecified | CPT/HCPCS: 84443 ==

== ENCOUNTER 2022-01-25 01:48 | Outpatient (CLI) | payer OTHER, SELFPAY ==
[2022-01-25 19:20] LABS: HCT 39.3 % (36.0-46.0); HGB 12.9 g/dL (11.2-15.7); MCH 30.6 pg (27.0-33.0); MCHC 32.8 % (32.0-36.0); MCV 93 fL (80-95); MPV 10.4 fL (8.0-11.0); Platelet Count 286 10^3/uL (130-400); RBC 4.22 10^6/uL (3.93-5.22); RDW-SD 47.8 fL; WBC 6.84 10^3/uL (4.4-10.8)
[2022-01-25 19:53] LABS: ALT 46 U/L (14-59); AST 20 U/L (15-37)
[2022-01-25 19:55] LABS: Cholesterol 212 mg/dL (<200); Triglyceride 256 mg/dL (<150)
== END 2022-01-25 01:49 | disposition home or self-care (01) ==
LOC: LBO 01:49
PROVIDERS: PCP Nurse Practitioner Family; Visit Provider Dermatology
DX: L40.1 Generalized pustular psoriasis (principal); Z79.899 Other long term (current) drug therapy
CPT/HCPCS: 85027; 82465; 84450; 84460; 84478

== ENCOUNTER 2022-07-19 01:31 | Outpatient (CLI) | payer OTHER, SELFPAY ==
[2022-07-19 09:04] LABS: Abs Immature Grans 0.04 10^3/uL (0.0-0.06); Absolute Basophil Count 0.11 10^3/uL (0.0-0.2); Absolute Eosinophil Count 0.42 10^3/uL (0.0-0.7); Absolute Lymphocyte Count 2.33 10^3/uL (1.2-3.4); Absolute Monocyte Count 0.59 10^3/uL (0.1-0.8); Absolute Neutrophil Count 5.75 10^3/uL (1.2-6.7); Basophils % 1.2; Eosinophils % 4.5; HCT 40.2 % (36.0-46.0); HGB 12.9 g/dL (11.2-15.7); Immature Grans % 0.4; Lymphocytes % 25.2; MCH 30.9 pg (27.0-33.0); MCHC 32.1 % (32.0-36.0); MCV 96 fL (80-95); MPV 9.7 fL (8.0-11.0); Monocytes % 6.4; Neutrophils % 62.3; Platelet Count 334 10^3/uL (130-400); RBC 4.18 10^6/uL (3.93-5.22); RDW 14.5 % (11.7-14.6); RDW-SD 50.5 fL; WBC 9.24 10^3/uL (4.4-10.8)
[2022-07-19 09:35] LABS: Cholesterol 208 mg/dL (<200); Triglyceride 154 mg/dL (<150)
[2022-07-19 09:43] LABS: ALT 82 U/L (14-59); AST 48 U/L (15-37); Anion Gap 9.8 mmol/L (3-11); BUN 11 mg/dL (7-18); CO2 28.2 mmol/L (21.0-32.0); CREATININE 0.8 mg/dL (0.55-1.02); Calcium 8.9 mg/dL (8.5-10.1); Chloride 105 mmol/L (98-107); Estimated GFR 89.15 (mL/min/1.73m2); Glucose 117 mg/dL (74-106); Potassium 4.2 mmol/L (3.5-5.1); Sodium 143 mmol/L (136-145); TSH (W/Ref FT4) 7.04 uIU/mL (0.36-3.74)
[2022-07-19 10:22] LABS: FREE T4 1.15 ng/dL (0.76-1.46)
== END 2022-07-19 01:32 | disposition home or self-care (01) ==
PROVIDERS: PCP Nurse Practitioner Family; Visit Provider Nurse Practitioner Family
DX: L93.0 Discoid lupus erythematosus (principal); R73.03 Prediabetes; E03.9 Hypothyroidism, unspecified
CPT/HCPCS: 36415; 80048; 82465; 83735; 84439; 84443; 84450; 84460; 84478; 85025

== ENCOUNTER 2022-09-05 09:02 | Outpatient (REF) | payer OTHER, SELFPAY ==
[2022-09-05 15:16] LABS: Hemoglobin A1C 6.1 % (<5.7)
[2022-09-05 15:28] LABS: ALT 76 U/L (14-59); AST 37 U/L (15-37); Albumin 3.5 g/dL (3.4-5.0); Alkaline Phosphatase 84 U/L (46-116); Anion Gap 8.4 mmol/L (3-11); BUN 17 mg/dL (7-18); Bilirubin, Total 0.2 mg/dL (0.2-1.0); CO2 29.6 mmol/L (21.0-32.0); CREATININE 0.7 mg/dL (0.55-1.02); Chloride 105 mmol/L (98-107); Estimated GFR 104.65 (mL/min/1.73m2); Glucose 111 mg/dL (74-106); Potassium 5.3 mmol/L (3.5-5.1); Sodium 143 mmol/L (136-145); TSH (W/Ref FT4) 1.59 uIU/mL (0.36-3.74); Total Protein 7.1 g/dL (6.4-8.2)
[2022-09-06 09:54] LABS: Hepatitis A Antibody IgM Negative (Negative); Hepatitis B Core Antibody Negative (Negative); Hepatitis B surface Ag Negative (Negative); Hepatitis C Ab w Rflx HCV PCR Negative (Negative)
== END 2022-09-05 09:03 | disposition home or self-care (01) ==
LOC: NCHCN 09:02
PROVIDERS: PCP Nurse Practitioner Family; Visit Provider Nurse Practitioner Family
DX: Z00.00 Encounter for general adult medical examination without abnormal findings (principal); R74.8 Abnormal levels of other serum enzymes; R73.03 Prediabetes; E03.9 Hypothyroidism, unspecified; E66.9 Obesity, unspecified
CPT/HCPCS: 80053; 86704; 86709; 86803; 87340; 83036; 84443

== ENCOUNTER 2022-09-16 10:04 | Outpatient (REF) | payer OTHER, SELFPAY ==
[2022-09-16 14:26] LABS: Anion Gap 6.6 mmol/L (3-11); BUN 14 mg/dL (7-18); CO2 30.4 mmol/L (21.0-32.0); CREATININE 0.7 mg/dL (0.55-1.02); Chloride 105 mmol/L (98-107); Estimated GFR 104.65 (mL/min/1.73m2); Glucose 75 mg/dL (74-106); Sodium 142 mmol/L (136-145)
== END 2022-09-16 10:05 | disposition home or self-care (01) ==
LOC: NCHCN 10:04
PROVIDERS: PCP Nurse Practitioner Family; Visit Provider Nurse Practitioner Family
DX: E87.5 Hyperkalemia (principal)
CPT/HCPCS: 80048

== ENCOUNTER 2023-01-10 02:54 | Outpatient (CLI) | payer OTHER, SELFPAY ==
[2023-01-10 12:18] LABS: HCT 41.3 % (36.0-46.0); HGB 13.3 g/dL (11.2-15.7); MCH 29.8 pg (27.0-33.0); MCHC 32.2 % (32.0-36.0); MCV 92 fL (80-95); MPV 9.9 fL (8.0-11.0); Platelet Count 274 10^3/uL (130-400); RBC 4.47 10^6/uL (3.93-5.22); RDW 14.8 % (11.7-14.6); RDW-SD 50.4 fL; WBC 8.87 10^3/uL (4.4-10.8)
[2023-01-10 12:32] LABS: ALT 43 U/L (14-59); AST 26 U/L (15-37); BUN 12 mg/dL (7-18); CREATININE 0.8 mg/dL (0.55-1.02)
[2023-01-10 12:34] LABS: Cholesterol 185 mg/dL (<200); Triglyceride 190 mg/dL (<150)
== END 2023-01-10 02:55 | disposition home or self-care (01) ==
LOC: LBO 02:55
PROVIDERS: PCP Nurse Practitioner Family; Visit Provider Dermatology
DX: L40.1 Generalized pustular psoriasis (principal); Z79.899 Other long term (current) drug therapy
CPT/HCPCS: 36415; 84520; 85027; 82465; 82565; 84450; 84460; 84478

== ENCOUNTER → 2023-02-17 02:04 | Outpatient (CLI) | payer OTHER, SELFPAY ==
--- NOTE | 2023-02-17 | DI.MAMMO_ITS ---
Exam(s) MAMMO SCREENING EXAM: MAMMO SCREENING CLINICAL HISTORY: SCREENING, Z12.39 TECHNIQUE: Mammograms were interpreted according to the usual protocol including computer analysis w [facility] CAD system, tomosynthesis and C-view imaging. COMPARISON: None. Baseline examination. FINDINGS: The breasts are composed of mainly fatty density , Breast Density category A. No suspicious masses or suspicious microcalcifications are seen. No skin thickening or abnormal axillary lymph nodes are seen. IMPRESSION: BI-RADS Category 1, Negative mammogram Yearly screening mammography is recommended. Breast Density - Category A, fatty density. A negative radiographic report should not delay biopsy if a dominant or clinically suspicious mass is present. Up to ten percent of cancers are not identified on mammography. A negative report may reinforce clinical impression. Adenosis and dense breasts may obscure an underlying neoplasm. False positive reports average 6 to 10%. Patient will receive a letter notifying them of these results.
== END ==
PROVIDERS: PCP Nurse Practitioner Family; Visit Provider Nurse Practitioner Family
DX: Z12.31 Encounter for screening mammogram for malignant neoplasm of breast (principal)
CPT/HCPCS: 77063; 77067

== ENCOUNTER 2023-07-07 04:10 | Outpatient (CLI) | payer OTHER, SELFPAY ==
[2023-07-07 13:14] LABS: HCT 40.3 % (36.0-46.0); HGB 13.1 g/dL (11.2-15.7); MCHC 32.5 % (32.0-36.0); MCV 92 fL (80-95); MPV 9.2 fL (8.0-11.0); Platelet Count 295 10^3/uL (130-400); RBC 4.36 10^6/uL (3.93-5.22); RDW 14.8 % (11.7-14.6); RDW-SD 50.9 fL; WBC 10.55 10^3/uL (4.4-10.8)
[2023-07-07 13:46] LABS: ALT 43 U/L (14-59); AST 24 U/L (15-37); BUN 16 mg/dL (7-18); CREATININE 0.8 mg/dL (0.55-1.02)
[2023-07-07 14:01] LABS: Cholesterol 194 mg/dL (<200); Triglyceride 330 mg/dL (<150)
== END 2023-07-07 04:11 | disposition home or self-care (01) ==
LOC: LBO 04:11
PROVIDERS: PCP Nurse Practitioner Family; Visit Provider Dermatology
DX: L40.1 Generalized pustular psoriasis (principal); Z79.899 Other long term (current) drug therapy
CPT/HCPCS: 36415; 84520; 85027; 82465; 82565; 84450; 84460; 84478

== ENCOUNTER 2024-01-06 02:52 | Outpatient (CLI) | payer OTHER, SELFPAY ==
--- OUTSIDE RECORDS SUMMARY | 2024-01-06 02:54 | XMS_ITS | Clinical Summary ---
Author Organization [facility]ly [facility], Later [facility] Address [facility] [place] [address] Care Team Providers Care Senior Pensions Administrator Name Role Phone Claritza Winter MARY Primary Care Provider [phone] Allergies Active Allergy Reactions Criticality Noted Date Comments Aspirin, Buffered 04/25/2017 Penicillins 04/25/2017 Medications Medication Sig Dispensed Refills Start Date End Date Status famotidine (PEPCID) 20 mg Tablet 0 04/11/2017 Active sertraline (Zoloft) 50 mg Tablet TK 1 T PO QD 04/23/2019 Active omeprazole (PriLOSEC) 40 mg Capsule, Delayed Release(E.C.) Take 40 mg by mouth daily. 07/19/2020 Active triamcinolone (Kenalog) 0.1 % Cream Apply sparingly to areas of lupus as needed. 30 g 2 07/27/2021 Active levothyroxine (Synthroid) 200 mcg tablet Take 200 mcg by mouth daily. 07/26/2022 Active metHOTREXate (TrexalL) 2.5 mg tabletIndications:Lup us erythematosus tumidus Take six (6) of the 2.5 mg tablets by mouth every week (15 mg) Take on a full stomach at bedtime 78 tablet 1 07/18/2023 Active folic acid (Vitamin B9) 1 mg tablet Take one tablet by mouth every day except day of MTX dosing 90 tablet 1 07/18/2023 Active chloroquine (Aralen) 250 mg tabletIndications:mal aria prevention Take one tablet by mouth daily. 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 [place] [phone] Davion Vitale MD [address], [place] [address] Health Maintenance Due Date Last Done Comments CT Colonography 1970 Colonoscopy 1970 Colorectal Cancer Screening 1970 FIT DNA 1970 FIT 1970 Sigmoidoscopy (10 year) with FIT yearly 1970 Sigmoidoscopy 1970 Pneumococcal Vaccine: At-Risk 5-64yrs (1 of 2 - PCV) 0 1976 HIV screen 1988 Hepatitis C Screening 1988 Lipid Screening 1988 Hepatitis B vaccine (0-59 yrs) (1) 1989 Tdap adult 1989 Tetanus vaccine 1989 HPV test 2000 PAP Smear 2000 Breast Cancer Share Decision Needed 2010 Breast Cancer screening 2010 Zoster vaccine (1 of 2) 2020 Covid-19 Vaccine (1 - 2022-24 season) 2023 Influenza (Flu) vaccine (1 o f 1 - Influenza standard series) 01/11/2024 Care Teams Senior Pensions Administrator Relationship Specialty Start Date End Date Claritza Winter APRN [address] [place] [address] PCP - General Family Medicine 05/22/18
--- OUTSIDE RECORDS SUMMARY | 2024-01-06 02:54 | XMS_ITS | Encounter Summary ---
Author Organization [facility] Address [facility] [place] [place] [address] Care Team Providers Care Medical Science Liaison Name Role Phone Georgette Dahl MD Primary Care Provider [phone] Reason for Visit * Reason Comments Follow-up Skin Check Encounter Details Date Type Department Care Team (Late st Contact Info) Description 11/25/2017 4:30 PM EDT Office Visit Dermatology at [address] [place] [phone] Davion Vitale MD [address], [place] [address] Lupus erythematosus tumidus Social History Tobacco Use Types Packs/Day Years Used Date Smoking Tobacco: Every Day Smokeless Tobacco: Never Sex and Gender Information Value Date Recorded Sex Assigned at Not on file Gender Identity Not on file Sexual Orientation Not on file documented as of this encounter Progress Notes * Davion Vitale MD - 11/25/2017 4:30 PM EDT Problem: 1. Follow-up tumid lupus erythematosus 2. On hydroxychloroquine since May 2017 Dari follows up and continues to do better. The erythema has largely faded and her chest arms andupper back the painful nodules on her legs have decreased in size and most have resolved. She has had no further trouble tolerating hydroxychloroquine. She is taking a bid dosing. She has not had anyeye exams done yet but she does see [facility] ophthalmologic practice in [place]. Walter Arreguin OD was her mechanical applications engineer before he retired. He is scheduled to see them in the next few weeks again for her yearly eye check. We discussed the importance of this while she is on hydroxychloroquine Physical examination reveals some patchy erythema still present in the upper chest and back but significant improvement. The nodules of her legs are largely resolved. She does have some active areas on the arms and forearms where she had sun exposure recently and willingly without long sleeves and without sunscreen on. This was from a during a car ride. 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 Reiterated the importance of sun avoidance precautions and photosensitivity triggered by her tumid lupus 2. Continue hydroxychloroquine 200 mg 1 p.o. twice daily we will dispense 180 for 3 month supply with 1 refill 3. Return to clinic in 6 months repeat check. 4. Patient is this be seen by her mechanical applications engineer shortly. Would recommend dilated eye exam to rule outhydroxychloroquine induced hyperpigmentation of the retina. 5. Congratulated on her overall wonderful response Cc: Georgette Dahl MD documented in this encounter Plan of Treatment Upcoming Encounters Date Type Department Care Team (Late st Contact Info) Description 01/23/2024 9:00 AM EDT Office Visit Dermatology at [place] [address] [place] [phone] Davion Vitale MD [address], [place] [address] documented as of this encounter Visit Diagnoses Diagnosis Lupus erythematosus tumidus Lupus erythematosus documented in this encounter Care Teams Medical Science Liaison Relationship Specialty Start Date End Date Georgette Dahl MD [address] [place] [address] PCP - General 04/03/10 05/21/18 documented as of this encounter
--- OUTSIDE RECORDS SUMMARY | 2024-01-06 02:54 | XMS_ITS | Encounter Summary ---
Author Organization [facility] [place] [address] Care Team Providers Care Curb And Gutter Laborer Name Role Phone Claritza Winter MARY Primary Care Provider [phone] Reason for Visit * Reason Comments Follow-up Encounter Details Date Type Department Care Team (Late st Contact Info) Description 08/09/2022 8:45 AM EDT Office Visit Dermatology at [address] [place] [phone] Davion Vitale MD [address], [place] [address] Lupus erythematosus tumidus Social History Tobacco Use Types Packs/Day Years Used Date Smoking Tobacco: Every Day Smokeless Tobacco: Never Sex and Gender Information Value Date Recorded Sex Assigned at Not on file Gender Identity Not on file Sexual Orientation Not on file documented as of this encounter Progress Notes * Davion Vitale MD - 08/09/2022 8:45 AM EDT Problem: 1. 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 ??On chloroquine 250 mg 1 p.o. daily since August 2020 3.?On hydroxychloroquine ??May 2017??through May 2019,??but??unable to tolerate. 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 Dari follows up for a 6-month check on her tumid lupus erythematosus. Recently her labs came backshowing elevated transaminases and an elevated TSH. Her thyroid replacement is not elevated. She been taking a lot of Tylenol containing cold versus recently for a cold. She does not drink alcohol. She has swelling of her right thigh since I saw her last which has not yet been seen by her network contract manager but insurance will cover a visit to Dr. Rob cruz referrals been made because of following medication, namely chloroquine. Physical examination reveals a pleasant 51-year-old woman who has no active dermatitis. Her arms are clear with some postinflammatory erythema on the dorsal forearms. Back is clear. Face is clear. Assessment and plan Tumid lupus erythematosus controlled with chloroquine and methotrexate 1. Continue methotrexate taking 6 of the 2.5 mg tablets p.o. once weekly for a 15 mg dose. [id number] for a 3-month supply with 1 refill to [facility] in [place]. 2. Continue chloroquine 250 mg take 1 p.o. daily dispense 90 for 3 supply with 1 refill. Also will send refill to [facility]. 3. Continue folic acid 1 mg every day except 1 day she takes methotrexate. Dispense #90 for 3 supply with refills. 4. Continue work on smoking cessation.. She is still smoking a pack a day. 5. We will refer patient to [facility] for a dilated eye examination to rule out retinal toxicity from chloroquine. 6. Patient will have her labs repeated to confirm lack of hepatotoxicity 7. Return to clinic in 6 months for repeat check. Repeat labs prior to that visit. CC: Claritza Rico APRN documented in this encounter Plan of Treatment Upcoming Encounters Date Type Department Care Team (Late st Contact Info) Description 01/23/2024 9:00 AM EDT Office Visit Dermatology at [place] [address] [place] [address] Davion Vitale MD [address], [place] [address] documented as of this encounter Visit Diagnoses Diagnosis Lupus erythematosus tumidus Lupus erythematosus documented in this encounter Care Teams Curb And Gutter Laborer Relationship Specialty Start Date End Date Claritza Winter APRN [address] [place] [address] PCP - General Family Medicine 05/22/18 documented as of this encounter
--- OUTSIDE RECORDS SUMMARY | 2024-01-06 02:54 | XMS_ITS | Encounter Summary ---
Author Organization [facility] Address [facility] [place] [address] Care Team Providers Care Patient Registration Representative Name Role Phone Georgette Dahl MD Primary Care Provider [phone] Encounter Details Date Type Department Care Team (Late st Contact Info) Description 07/14/2017 Refill Dermatology at [address] [phone] April Bruner, BUNCH TRIMMER MOLD Social History Tobacco Use Types Packs/Day Years Used Date Smoking Tobacco: Every Day Smokeless Tobacco: Never Sex and Gender Information Value Date Recorded Sex Assigned at Not on file Gender Identity Not on file Sexual Orientation Not on file documented as of this encounter Plan of Treatment Upcoming Encounters Date Type Department Care Team (Late st Contact Info) Description 01/23/2024 9:00 AM EDT Office Visit Dermatology at [address] [address] Davion Vitale MD [address] [place] [address], [place] [address] documented as of this encounter Visit Diagnoses Not on filedocumented in this encounter Care Teams Patient Registration Representative Relationship Specialty Start Date End Date Georgette Dahl MD [address] [place] [address] PCP - General 04/03/10 05/21/18 documented as of this encounter
--- OUTSIDE RECORDS SUMMARY | 2024-01-06 02:54 | XMS_ITS | Encounter Summary ---
Author Organization [facility] Address [facility] [place] [address] Care Team Providers Care Financial Services Representative Name Role Phone Claritza Winter MARY Primary Care Provider [phone] Encounter Details Date Type Department Care Team (Late st Contact Info) Description 05/01/2021 8:00 AM EST Office Visit Dermatology at [address] [place] [address] Davion Vitale MD [address], [place] [address] Psoriasis; Lupus erythematosus tumidus Social History Tobacco Use Types Packs/Day Years Used Date Smoking Tobacco: Every Day Smokeless Tobacco: Never Sex and Gender Information Value Date Recorded Sex Assigned at Not on file Gender Identity Not on file Sexual Orientation Not on file documented as of this encounter Progress Notes * Davion Vitale MD - 05/01/2021 8:00 AM EST Problem: 1. 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 ??On chloroquine 250 mg 1 p.o. daily since August 2020 3.?On hydroxychloroquine ??May 2017??through May 2019,??but??unable to tolerate. 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 Dari follows up and is doing very well. Her tumid lupus is quiescent. The glasslike feeling of her skin has resolved on the malar cheeks on her arms forearms. If she is out in the sun unexpectedly she does not have as much reaction as she did before although she tries to avoid sun. The edema in her legs is much better and almost totally resolved. She has no GI upset with either of the 2 medications and is tolerating both well. ?? Physical examination reveals a pleasant 49-year-old woman who has no active tumid lupus today. The edema has resolved. She has no dermatitis. 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 Continue methotrexate taking 6 of the 2.5 mg tablets p.o. once weekly for 15 mg dose. Dispense #78 for a 3-month supply to [facility] in [place]. 2. Continue chloroquine 250 mg 1 p.o.daily dispense #90 for 3-month supply with 0 refills. 3. Continue folic acid 1 mg every day except for the 1 day she takes methotrexate. She was given a 1 year supply of this in January 2020 4. Continue to work on smoking cessation 5. Return to clinic in 3 months for repeat check repeat labs again in 3 months as well. At that time may be able to space out to once every 6-month visits. 6. Would recommend the patient have dilated eye examination to rule out retinal hyperpigmentation at [facility] in [place]. ?? CC: Claritza Winter APRN ?? documented in this encounter Plan of Treatment Upcoming Encounters Date Type Department Care Team (Late st Contact Info) Description 01/23/2024 9:00 AM EDT Office Visit Dermatology at [address] [place] [address] Davion Vitale MD [address], [place] [address] documented as of this encounter Visit Diagnoses Diagnosis Psoriasis Other psoriasis Lupus erythematosus tumidus Lupus erythematosus documented in this encounter Care Teams Financial Services Representative Relationship Specialty Start Date End Date Claritza Winter APRN [address] [place] [address] PCP - General Family Medicine 05/22/18 documented as of this encounter
--- OUTSIDE RECORDS SUMMARY | 2024-01-06 02:54 | XMS_ITS | Encounter Summary ---
[place] [address] Care Team Providers Care Conveyor System Dispatcher Name Role Phone Claritza Winter APRN Primary Care Provider [phone] Encounter Details Date Type Department Care Team (Latest Contact Info) Description 07/18/2023 Travel Social History Tobacco Use Types Packs/Day Years [...] 9:00 AM EDT Office Visit Dermatology at [address] [place] [phone] Davion Vitale MD [address], [place] [address] documented as of this encounter Visit Diagnoses Not on filedocumented in this encounter Care Teams Conveyor System Dispatcher Relationship Specialty Start Date End Date Claritza Winter APRN [address] [place] [address] PCP - General Family Medicine 05/22/18 documented as of this encounter
--- OUTSIDE RECORDS SUMMARY | 2024-01-06 02:54 | XMS_ITS | Encounter Summary ---
Author Organization [facility] Address [address] [place] [address] Care Team Providers Care Elementary School Professional Name Role Phone Unknown, Provider Primary Care Provider [phone] Encounter Details Date Type Department Care Team (Late st Contact Info) Description 09/05/2022 Lab Requisition [facility] Pathology & Laboratory Medicine - [address] [address] Outr Resulting Lab, Provider Social History Tobacco Use Types Packs/Day Years Used Date Smoking Tobacco: Never Assessed Interpersonal Safety Answer Date Record ed Physically Hurt Never 12/12/2019 Verbally Threaten Not on file 12/12/2019 Sex and Gender Information Value Date Recorded Sex Assigned at Not on file Gender Identity Not on file Sexual Orientation Not on file documented as of this encounter Plan of Treatment Not on file documented as of this encounter Procedures Procedure Name Priority Date/Time Associated Diagnosis Comments ACUTE HEPATITIS PROFILE Routine 09/05/2022 8:15 EDT documented in this encounter Results * ACUTE HEPATITIS PROFILE (09/05/2022 8:15 EDT) Hep B Surface Ag Negative Negative 09/06/2022 9:50 EDT [facility] Hep C Antibody Negative Negative 09/06/2022 9:50 EDT [facility] Hepatitis A Antibody, IgM Negative Negative 09/06/2022 9:50 EDT [facility] Comment:The results of this assay can be falsely lowered due to the consumption of Biotin. Hepatitis B Core Ab, Total Negative Negative 09/06/2022 9:50 EDT [facility] Blood VENOUS BLOOD / Unknown 09/05/2022 8:15 EDT 09/05/2022 21:13 EDT Provider Outr Resulting Lab CHEMISTRY & BLOOD GAS ORDERABLES [facility] [address] [place] [address] documented in this encounter Visit Diagnoses Not on filedocumented in this encounter Care Teams Elementary School Professional Relationship Specialty Start Date End Date Unknown, Provider, PCP - General 05/25/09 documented as of this encounter
--- OUTSIDE RECORDS SUMMARY | 2024-01-06 02:54 | XMS_ITS | Encounter Summary ---
Author Organization [facility] Address [facility] [place] [address] Care Team Providers Care Rfp Writer Name Role Phone Claritza Winter MARY Primary Care Provider [phone] Encounter Details Date Type Department Care Team (Late st Contact Info) Description 06/03/2019 8:30 AM EST Office Visit Dermatology at [address] [phone] Davion Vitale MD [address] [facility] [place], [place] [phone] Lupus erythematosus tumidus Social History Tobacco Use Types Packs/Day Years Used Date Smoking Tobacco: Every Day Smokeless Tobacco: Never Sex and Gender Information Value Date Recorded Sex Assigned at Not on file Gender Identity Not on file Sexual Orientation Not on file documented as of this encounter Progress Notes * Davion Vitale MD - 06/03/2019 8:30 AM EST Problem: 1. Follow-up tumid lupus erythematosus 2. On hydroxychloroquine since May 2017 3. Patient works as an [employer] follows up in unfortunately she is still having issues tolerating hydroxychloroquine. She has both diarrhea, and perhaps up to 3 times a week vomiting usually in the mornings about an hour after she takes her hydroxychloroquine dose. She continues to have some dermatitis on the dorsal forearms will be on her back her chest is improved significantly with triamcinolone cream. She has tried taking the medication on empty stomach or with food to no avail. If he takes it with food she has diarrhea, if he takes it on empty stomach often she will have nausea and vomiting. Physical examination continues to reveal mild Ricki active photo accentuated dermatitis of the dorsalforearms not the face mainly of the upper chest little bit across her back with papules on her back. Assessment and plan: Tumid lupus erythematosus, still mildly active 1. Hold further dosing of hydroxychloroquine 2. Will review other options for her and relay these to her within a day or 2 3. Follow-up 2 months after starting new medication 4. Continues of high SPF protection sunscreen. CC: Claritza Winter APRN documented in this encounter Plan of Treatment Upcoming Encounters Date Type Department Care Team (Late st Contact Info) Description 01/23/2024 9:00 AM EDT Office Visit Dermatology at [place] [address] [place] [address] Davion Vitale MD [address] [facility] [address] documented as of this encounter Visit Diagnoses Diagnosis Lupus erythematosus tumidus Lupus erythematosus documented in this encounter Care Teams Rfp Writer Relationship Specialty Start Date End Date Claritza Winter APRN [address] [place] [address] PCP - General Family Medicine 05/22/18 documented as of this encounter
--- OUTSIDE RECORDS SUMMARY | 2024-01-06 02:54 | XMS_ITS | Encounter Summary ---
Author Organization [facility] Address [address] [place] [address] Care Team Providers Care Industrial Specialist Name Role Phone Unknown, Provider Primary Care Provider [phone] Encounter Details Date Type Department Care Team (Late st Contact Info) Description 07/16/2021 Lab Requisition [facility] Pathology & Laboratory Medicine - [address] [id number] Outr Resulting Lab, Provider Social History Tobacco [...] Procedure Name Priority Date/Time Associated Diagnosis Comments VITAMIN B12 Routine 07/16/2021 9:25 EST documented in this encounter Results * VITAMIN B12 (07/16/2021 9:25 EST) Vitamin B12 259 211 - 911 pg/mL 07/16/2021 22:33 EST [facility] Blood VENOUS BLOOD / Unknown 07/16/2021 9:25 EST 07/16/2021 21:16 EST Provider Outr Resulting Lab CHEMISTRY & BLOOD GAS ORDERABLES [facility] [address] [place] [address] documented in this encounter Visit Diagnoses Not on filedocumented in this encounter Care Teams Industrial Specialist Relationship Specialty Start Date End Date Unknown, Provider, PCP - General 05/25/09 documented as of this encounter
--- OUTSIDE RECORDS SUMMARY | 2024-01-06 02:54 | XMS_ITS | Encounter Summary ---
[place] [address] Care Team Providers Care Street Department Dispatcher Name Role Phone Claritza Winter APRN Primary Care Provider [phone] Encounter Details Date Type Department Care Team (Latest Contact Info) Description 08/09/2022 Travel Social History Tobacco Use Types Packs/Day [...] 9:00 AM EDT Office Visit Dermatology at [address] [place] [phone] Davion Vitale MD [address], [place] [address] documented as of this encounter Visit Diagnoses Not on filedocumented in this encounter Care Teams Street Department Dispatcher Relationship Specialty Start Date End Date Claritza Winter APRN [address] [place] [address] PCP - General Family Medicine 05/22/18 documented as of this encounter
--- OUTSIDE RECORDS SUMMARY | 2024-01-06 02:54 | XMS_ITS | Encounter Summary ---
Author Organization [facility] Address [facility] [place] [address] Care Team Providers Care Public Health Worker Name Role Phone Claritza Winter APRN Primary Care Provider [phone] Encounter Details Date Type Department Care Team (Late st Contact Info) Description 06/04/2019 Refill Dermatology at [address] [phone] April Bruner, PARKING STATION ATTENDANT Social History Tobacco Use Types Packs/Day Years [...] 9:00 AM EDT Office Visit Dermatology at [address] [address] Davion Vitale MD [address] [place] [address], [place] [address] documented as of this encounter Visit Diagnoses Not on filedocumented in this encounter Care Teams Public Health Worker Relationship Specialty Start Date End Date Claritza Winter APRN [address] [place] [address] PCP - General Family Medicine 05/22/18 documented as of this encounter
--- OUTSIDE RECORDS SUMMARY | 2024-01-06 02:54 | XMS_ITS | Encounter Summary ---
Author Organization Formerly [facility], Later [facility] Address [facility] [place] [address] Care Team Providers Care Human Resources Benefits Coordinator Name Role Phone Claritza Winter APRN Primary Care Provider +1 [phone] Encounter Details Date Type Department Care Team (Late st Contact Info) Description 04/28/2020 Refill Dermatology at [address] [phone] April Bruner, REGULATORY TECHNICIAN Social History Tobacco Use Types Packs/Day Years [...] 9:00 AM EDT Office Visit Dermatology at [address] [phone] Davion Vitale MD [address] [place] [address], [place] [address] documented as of this encounter Visit Diagnoses Not on filedocumented in this encounter Care Teams Human Resources Benefits Coordinator Relationship Specialty Start Date End Date Claritza Winter APRN [address] [place] [address] PCP - General Family Medicine 05/22/18 documented as of this encounter
--- OUTSIDE RECORDS SUMMARY | 2024-01-06 02:54 | XMS_ITS | Encounter Summary ---
[place] [address] Care Team Providers Care It Infrastructure Specialist Name Role Phone Claritza Winter APRN Primary Care Provider +1 [phone] Encounter Details Date Type Department Care Team (Late st Contact Info) Description 07/27/2021 Refill Dermatology at [address] [phone] Keli May RN Lupus erythematosus tumidus Social History Tobacco Use [...] 9:00 AM EDT Office Visit Dermatology at [address] [place] [address] Davion Vitale MD [address], [place] [address] documented as of this encounter Visit Diagnoses Diagnosis Lupus erythematosus tumidus Lupus erythematosus documented in this encounter Care Teams It Infrastructure Specialist Relationship Specialty Start Date End Date Claritza Winter APRN [address] [place] [address] PCP - General Family Medicine 05/22/18 documented as of this encounter
--- OUTSIDE RECORDS SUMMARY | 2024-01-06 02:54 | XMS_ITS | Encounter Summary ---
Author Organization Formerly [facility] Address [place] [address] Care Team Providers Care Sap Bobj Developer Name Role Phone Claritza Winter APRN Primary Care Provider [phone] [phone] Encounter Details Date Type Department Care Team (Late st Contact Info) Description 01/28/2020 Refill Dermatology at [address] [phone] April Bruner, LIGHTING DIRECTOR Social History Tobacco Use Types Packs/Day Years [...] 9:00 AM EDT Office Visit Dermatology at [address] [phone] Davion Vitale MD [address] [place] [address], [place] [address] documented as of this encounter Visit Diagnoses Not on filedocumented in this encounter Care Teams Sap Bobj Developer Relationship Specialty Start Date End Date Claritza Winter APRN [address] [place] [address] PCP - General Family Medicine 05/22/18 documented as of this encounter
--- OUTSIDE RECORDS SUMMARY | 2024-01-06 02:54 | XMS_ITS | Encounter Summary ---
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
--- OUTSIDE RECORDS SUMMARY | 2024-01-06 02:54 | XMS_ITS | Encounter Summary ---
Author Organization [facility] Address [address] [place] [address] Care Team Providers Care Tandem Operator Name Role Phone Unknown, Provider Primary Care Provider Encounter Details Date Type Department Care Team (Late st Contact Info) Description 03/15/2015 Results Only [facility] [phone] Elias Lawrence, DO [address] [place] [address] Social History Tobacco Use Types Packs/Day Years Used Date Smoking Tobacco: Never Assessed Sex and Gender Information Value Date Recorded Sex Assigned at Not on file Gender Identity Not on file Sexual Orientation Not on file documented as of this encounter Plan of Treatment Not on file documented as of this encounter Procedures Procedure Name Priority Date/Time Associated Diagnosis Comments SURGICAL PATHOLOGY Routine 03/15/2015 9:07 EST documented in this encounter Results * SURGICAL PATHOLOGY (03/15/2015 9:07 EST) Pathology Report: SURGICAL PATHOLOGY REPORT Reports generated via electronic interface contain original data; however they are lacking the format of the original report. Caution should be taken when reading/interpret ing unformatted reports. Name: ? DARI MONTANO ? Accession #: ? [id number] ? : ? 1970 (Age: 44) ??F ? Collect Date: ? 03/15/2015 ? Location: ? [facility] ? Receive Date: ? 03/16/2015 ? Provider: ELIAS LAWRENCE DO Copy to: EDILMA KERN MD ? Final Pathologic Diagnosis: STOMACH, ANTRUM, BIOPSY: - ??Gastric mucosa with reactive (chemical) gastropathy. Document reviewed and electronically signed by: DAMIEN OSPINA MD Report ??Date: 03/16/2015 18:11 By the signature above, the attending physician certifies that he/she has personally conducted a gross and/or microscopic examination of the described specimens and rendered or confirmed the above diagnosis. Specimen(s) Received: Gastric antrum Clinical History: Upper abdominal pain Gross Description: ? Received in formalin labelled with proper patient identification (initials B, B) and gastric antrum are three fragments of keller-pink tissue (0.2 x 0.2 x 0.2 cm and 0.4 x 0.2 x 0.2 cm). The specimen is submitted entirely in 1. 03/16/2015 9:47 AM End of Report [facility] 03/15/2015 9:07 EST 03/16/2015 9:07 EST Elias Lawrence DO PATHOLOGY ORDERABLES [facility] [address] [place] [address] documented in this encounter Visit Diagnoses Not on filedocumented in this encounter Care Teams Tandem Operator Relationship Specialty Start Date End Date Unknown, Provider, PCP - General 05/25/09 documented as of this encounter
--- OUTSIDE RECORDS SUMMARY | 2024-01-06 02:54 | XMS_ITS | Encounter Summary ---
Author Organization [facility] Address [address] [place] [address] Care Team Providers Care Pilot Plant Research Technician Name Role Phone Unknown, Provider Primary Care Provider Encounter Details Date Type Department Care Team (Latest Contact Info) Description 01/23/2017 11:53 EDT - 01/23/2017 23:59 EDT Hospital Encounter [address] [address] Unknown, Provider, Discharge Disposition: Home or Self Care Social History Tobacco Use Types Packs/Day Years Used Date Smoking Tobacco: Never Assessed Sex and Gender Information Value Date Recorded Sex Assigned at Not on file Gender Identity Not on file Sexual Orientation Not on file documented as of this encounter Discharge Disposition Disposition Code Departure Means Destination Home or Self Custodial documented in this encounter Plan of Treatment Not on file documented as of this encounter Visit Diagnoses Not on filedocumented in this encounter Care Teams Pilot Plant Research Technician Relationship Specialty Start Date End Date Unknown, Provider, PCP - General 05/25/09 documented as of this encounter
--- OUTSIDE RECORDS SUMMARY | 2024-01-06 02:54 | XMS_ITS | Encounter Summary ---
Author Organization [facility] Address [address] [place] [address] Care Team Providers Care Machine Adjuster Name Role Phone Unknown, Provider Primary Care Provider [phone] Encounter Details Date Type Department Care Team (Late st Contact Info) Description 09/07/2019 Lab Requisition [facility] Pathology & Laboratory Medicine - [address] [address] Outr Resulting Lab, Provider Social History Tobacco [...] Procedure Name Priority Date/Time Associated Diagnosis Comments ZZCOVID-19 TEST [facility] LAB PCR Today 09/07/2019 10:45 EDT COVID-19 TESTING Routine 09/07/2019 10:4 5 EDT documented in this encounter Results * COVID-19 TEST [facility] PCR (09/07/2019 10:45 EDT) Swab ENTIRE NASOPHARYNX / Unknown 09/07/2019 10:45 EDT 09/07/2019 15:45 EDT Provider Outr Resulting Lab MICROBIOLOGY - GENERAL ORDERABLES [facility] [address] [place] [address] * COVID-19 TESTING (09/07/2019 10:45 EDT) COVID-19 rt-PCR Result Negative Negative 09/08/2019 9:04 EDT [facility] Comment: Negative results do not preclude 2019-nCoV infection and should not be used as the sole basis for treatment or other patient management decisions. Negative results must be combined with clinical observations, patient history, and epidemiological information. This test has not been FDA cleared or approved. This test has been authorized by FDA under an EUA for use by authorized laboratories. This test has been authorized only for detection of nucleic acid from 2019-nCoV, not for any other viruses or pathogens. This test is only authorized for the duration of the declaration that circumstances exist justifying the authorization of emergency use of in vitro diagnostic tests for detection and/or diagnosis of 2019-nCoV under section 564(b)(1) of Act, 21 U.S.C ?? 360bbb-3(b) (1), unless the authorization is terminated or revoked sooner. Performed on the [employer] Surgical Fusion instrument Performing Lab [facility] 09/08/2019 9:04 EDT [facility] Swab ENTIRE NASOPHARYNX / Unknown 09/07/2019 10:45 EDT 09/07/2019 15:45 EDT Provider Outr Resulting Lab MICROBIOLOGY - GENERAL ORDERABLES [facility] [address] [place] [address] documented in this encounter Visit Diagnoses Not on filedocumented in this encounter Care Teams Machine Adjuster Relationship Specialty Start Date End Date Unknown, Provider, PCP - General 05/25/09 documented as of this encounter
--- OUTSIDE RECORDS SUMMARY | 2024-01-06 02:54 | XMS_ITS | Encounter Summary ---
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
--- OUTSIDE RECORDS SUMMARY | 2024-01-06 02:54 | XMS_ITS | Encounter Summary ---
Author Organization [facility] [place] [address] Care Team Providers Care Camera Repairman Name Role Phone Claritaz Winter APRN Primary Care Provider [phone] Reason for Visit * Reason Comments Medication Refill Encounter Details Date Type Department Care Team (Late Contact Info) Description 01/16/2022 Refill Dermatology at [address] [phone] Davion Vitale MD [address] [place] [address], [place] [address] Social History Tobacco Use Types Packs/Day Years Used Date Smoking Tobacco: Every Day Smokeless Tobacco: Never Sex and Gender Information Value Date Recorded Sex Assigned at Not on file Gender Identity Not on file Sexual Orientation Not on file documented as of this encounter Plan of Treatment Upcoming Encounters Date Type Department Care Team (Late Contact Info) Description 01/23/2024 9:00 AM EDT Office Visit Dermatology at [address] [phone] Davion Vitale MD [address] [place] [address] [place] [address] documented as of this encounter Visit Diagnoses Not on filedocumented in this encounter Care Teams Camera Repairman Relationship Specialty Start Date End Date Claritza Winter APRN [address] [place] [address] PCP - General Family Medicine 05/22/18 documented as of this encounter
--- OUTSIDE RECORDS SUMMARY | 2024-01-06 02:54 | XMS_ITS | Encounter Summary ---
Author [facility] [place] [address] Care Team Providers Care Web Services Developer Name Role Phone Claritza Winter APRN Primary Care Provider [phone] Reason for Visit * Reason Onset Date Comments Medication Refill 08/11/2020 Encounter Details Date Type Department Care Team (Late st Contact Info) Description 08/11/2020 Refill Dermatology at [address] [phone] Davion Vitale MD [address] [place] [address], [facility] [place] [address] Social History Tobacco Use Types Packs/Day Years [...] 9:00 AM EDT Office Visit Dermatology at [address] [phone] Davion Vitale MD [address] [place] [address], [facility] [place] [address] documented as of this encounter Visit Diagnoses Not on filedocumented in this encounter Care Teams Web Services Developer Relationship Specialty Start Date End Date Claritza Winter APRN [address] [place] [address] PCP - General Family Medicine 05/22/18 documented as of this encounter
--- OUTSIDE RECORDS SUMMARY | 2024-01-06 02:54 | XMS_ITS | Encounter Summary ---
Author Organization [facility] [place] [address] Care Team Providers Care Warehouse Technician Name Role Phone Claritza Winter MARY Primary Care Provider [phone] Reason for Visit * Reason Comments Skin Check Encounter Details Date Type Department Care Team (Late st Contact Info) Description 08/11/2020 2:15 PM EDT Office Visit Dermatology at [address] [place] [phone] Davion Vitale MD [address], [place] [address] Lupus erythematosus tumidus Social History Tobacco Use Types Packs/Day Years Used Date Smoking Tobacco: Every Day Smokeless Tobacco: Never Sex and Gender Information Value Date Recorded Sex Assigned at Not on file Gender Identity Not on file Sexual Orientation Not on file documented as of this encounter Progress Notes * Davion Vitale MD - 08/11/2020 2:15 PM EDT Problem: 1. 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 ??On hydroxychloroquine ??May 2017??through May 2019,??but??unable to tolerate. 3. ??Patient works as an [employer] Dari follows up today and is starting to get some activity on her cheeks and forearms. She has been on methotrexate all winter long. Labs drawn just recently were within normal limits. Physical examination reveals a pleasant 49-year-old woman who has indurated papules across the malar cheeks bilaterally in all but also some activity on the dorsal forearms and arms consistent with her to mood lupus erythematosus. Assessment plan: Tumid lupus erythematosus, reactivating 1. Patient was unable to tolerate hydroxychloroquine due to diarrhea and nausea and vomiting 2. Begin trial of chloroquine 250 mg 1 p.o. daily dispense #30 with 1 refill 3. We will renew methotrexate taking 6 of the 2.5 mg tablets p.o. once weekly for a 15 mg dose. Dispense #78 with 0 refills for a 3-month supply. We will call this into her [facility] pharmacy in [place]. 4. Continue folic acid 1 mg every day except 1 day she takes her methotrexate she was given a 1 year supply in January 2020 5. Continue to work on cigarette cessation 6. Return to clinic in 2 months for repeat check. 7. Could also consider addition of dapsone. CC: Claritza Winter APRN documented in this encounter Plan of Treatment Upcoming Encounters Date Type Department Care Team (Late st Contact Info) Description 01/23/2024 9:00 AM EDT Office Visit Dermatology at [place] [address] [place] [address] Davion Vitale MD [address], [place] [address] documented as of this encounter Visit Diagnoses Diagnosis Lupus erythematosus tumidus Lupus erythematosus documented in this encounter Care Teams Warehouse Technician Relationship Specialty Start Date End Date Claritza Winter APRN [address] [place] [address] PCP - General Family Medicine 05/22/18 documented as of this encounter
--- OUTSIDE RECORDS SUMMARY | 2024-01-06 02:54 | XMS_ITS | Clinical Summary ---
Author Organization [facility] Address [address] [place] [address] Care Team Providers Care Ship'S Officer Name Role Phone Unknown, Provider Primary Care Provider [phone] Social History Tobacco Use Types Packs/Day Years Used Date Smoking Tobacco: Never Assessed Interpersonal Safety Answer Date Record ed Physically Hurt Never 12/12/2019 Verbally Threaten Not on file 12/12/2019 Sex and Gender Information Value Date Recorded Sex Assigned at Not on file Gender Identity Not on file Sexual Orientation Not on file Plan of Treatment Health Maintenance Due Date Last Done Comments Hepatitis B Vaccine (1 of - 19+ 3-dose series) 10/28 COVID-19 Vaccine ( season) 2023 Hepatitis C Screen Completed 04/21/2020 Procedures Procedure Name Priority Date/Time Associated Diagnosis Comments HCV RNA DETECT QUANT Routine 04/21/2020 14:20 EST from Last 3 Months or Most Recently Relevant to Health Maintenance Results * HCV RNA DETECT QUANT (04/21/2020 14:20 EST) HCV RNA Qualitative Undetected Undetected 04/24/2020 14:11 EST [facility] Blood VENOUS BLOOD / Unknown 04/21/2020 14:20 EST 04/23/2020 17:39 EST Narrative [facility] - 04/24/2020 14:11 EST The quantification range of this assay is 15 IU/mL to 100,000,000 IU/mL. ??Testing was performed on the HUMPHREY Ampliprep/HUMPHREY TaqMan HCV v2.0 ([employer] Provider Outr Resulting Lab CHEMISTRY & BLOOD GAS ORDERABLES [facility] [address] [place] [address] from Last 3 Months or Most Recently Relevant to Health Maintenance Care Teams Ship'S Officer Relationship Specialty Start Date End Date Unknown, Provider, PCP - General 05/25/09
--- OUTSIDE RECORDS SUMMARY | 2024-01-06 02:54 | XMS_ITS | Encounter Summary ---
Author Organization [facility] [place] [address] Care Team Providers Care Fern Cutter Name Role Phone Claritza Winter MARY Primary Care Provider [phone] [phone] Reason for Visit * Reason Comments Follow-up Encounter Details Date Type Department Care Team (Late st Contact Info) Description 07/18/2023 9:00 AM EST Office Visit Dermatology at [address] [place] [phone] Davion Vitale MD [address], [place] [address] Lupus erythematosus tumidus Social History Tobacco Use Types Packs/Day Years Used Date Smoking Tobacco: Every Day Smokeless Tobacco: Never Sex and Gender Information Value Date Recorded Sex Assigned at Not on file Gender Identity Not on file Sexual Orientation Not on file documented as of this encounter Progress Notes * Davion Vitale MD - 07/18/2023 9:00 AM EST Problem: 1. 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 On chloroquine 250 mg 1 p.o. daily since August 2020 3. On hydroxychloroquine May 2017 through May 2019, but unable to tolerate. 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 She has been doing well. This last fall in March she experienced a flare possibly due to increased stress, and again experienced experienced the typical glasslike feeling in her arms that she normally gets with flares. So she started back up on her chloroquine at that time rather than waiting until the spring time. She had been avoiding the sun and continues to do so. Insurance does not cover [facility] eye care but she has an appointment for an eye exam with [facility]. Physical examination reveals a pleasant 52-year-old woman who has clear skin over the dorsal forearms bilaterally. She does not have any facial findings. s. There is no significant inflammation. She has no significant active dermatitis. 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 Agree with current medications. Continue 2. Continue methotrexate taking 6 of the 2.5 mg tablets p.o. once weekly for a 15 mg dose dispense #78 for a 3-month supply with 1 refill to [facility] in [place] 3. Continue chloroquine 250 mg take 1 p.o. daily. Dispense #90 for a 3-month supply with 1 refill. I will send refill to [facility] in [facility] 4. Continue folic acid 1 mg every day except except the 1 day she takes her methotrexate. Dispense #90 for a 3-month supply with 1 refill 5. Continue to work on smoking cessation. She is still smoking a pack a day 6. She has scheduled appointment with [facility] next week to rule antimalarial induced retinal hyperpigmentation. 7. Labs from the very of this year within normal limits repeat again in 6 months return to clinic in 6 months. CC: Claritza Winter APRN documented in this encounter Plan of Treatment Upcoming Encounters Date Type Department Care Team (Late st Contact Info) Description 01/23/2024 9:00 AM EDT Office Visit Dermatology at [place] [address] [place] [address] Davion Vitale MD [address], [place] [address] documented as of this encounter Visit Diagnoses Diagnosis Lupus erythematosus tumidus Lupus erythematosus documented in this encounter Care Teams Fern Cutter Relationship Specialty Start Date End Date Claritza Winter APRN [address] [place] [address] PCP - General Family Medicine 05/22/18 documented as of this encounter
--- OUTSIDE RECORDS SUMMARY | 2024-01-06 02:54 | XMS_ITS | Encounter Summary ---
[place] [address] Care Team Providers Care Supervisor Sewer System Name Role Phone Claritza Winter APRN Primary Care Provider [phone] [phone] Encounter Details Date Type Department Care Team (Late st Contact Info) Description 01/17/2023 Refill Dermatology at [address] [phone] Keli May RN Lupus erythematosus tumidus Social [...] 9:00 AM EDT Office Visit Dermatology at [address] [place] [address] Davion Vitale MD [address], [place] [address] documented as of this encounter Visit Diagnoses Diagnosis Lupus erythematosus tumidus Lupus erythematosus documented in this encounter Care Teams Supervisor Sewer System Relationship Specialty Start Date End Date Claritza Winter APRN [address] [place] [address] PCP - General Family Medicine 05/22/18 documented as of this encounter
--- OUTSIDE RECORDS SUMMARY | 2024-01-06 02:54 | XMS_ITS | Encounter Summary ---
Author Organization [facility] Address [address] [place] [address] Care Team Providers Care General Operations Manager Name Role Phone Unknown, Provider Primary Care Provider Encounter Details Date Type Department Care Team (Late st Contact Info) Description 10/22/2019 Lab Requisition [facility] Pathology & Laboratory Medicine - [address] [address] Outr Resulting Lab, Provider Social History Tobacco [...] Procedure Name Priority Date/Time Associated Diagnosis Comments DO NOT ORDER STANDALONE - BROAD COVID TEST Today 10/22/2019 8:10 EDT COVID-19 TESTING Routine 10/22/2019 8:10 EDT documented in this encounter Results * DO NOT ORDER STANDALONE - BROAD COVID TEST (10/22/2019 8:10 EDT) COVID-19 rt-PCR Result NEGATIVE Negative 10/25/2019 11:27 EDT [facility] Comment: 2019-novel Coronavirus (2019-nCoV) not detected by the qRT-PCR assay. Consider testing for other respiratory viruses or re-collecting for 2019-nCoV testing. Note: Optimum timing for peak viral levels during infections caused by 2019-nCoV have not been determined. Collection of multiple specimens from the same patient may be necessary to detect the virus. Limitations Positive results are indicative of active infection with SARS-CoV-2 but do not rule out bacterial infection or co-infection with other viruses. The agent detected may not be the definite cause of disease. In addition, detection of viral RNA may not indicate the presence of infectious virus or that SARS-CoV-2 is the causative agent for clinical symptoms. Negative results do not preclude SARS-CoV-2 infection and should not be used as the sole basis for patient management decisions. Negative results must be combined with clinical observations, patient history, and epidemiological information. False negative results may also occur if amplification inhibitors are present in the specimen or if inadequate numbers of organisms are present in the specimen. Optimum specimen types and timing for peak viral levels during infections caused by SARS-CoV-2 have not been fully determined. Collection of multiple specimens (types and time points) from the same patient may be necessary to detect the virus. The test was validated for use with upper respiratory specimens obtained via nasopharyngeal or oropharyngeal swabs in VTM, UTM, M4, M5, M6, saline, and MTM media. The performance of this test has not been established for other specimens. Specimens collected using other FDA recommended Specimen Collection Materials listed in the FDA COVID-19 Diagnostic [employer] communication (August 05, 2019) are processed with the caveat that they were not all validated for use with this test and the result must be interpreted in this context. Furthermore, a false negative results may occur if a specimen is improperly collected, transported or handled. If the virus mutates in the RT-PCR target region, SARS-CoV-2 may not be detected or may be detected less predictably. Inhibitors or other types of interference may produce a false negative result. An interference study evaluating the effect of common cold medications was not performed. This test is not FDA-cleared but its performance characteristics were established by our CLIA-certified, CAP-accredited, high complexity laboratory in accordance with CLIA regulations, [employer] (CAP) guidelines (Jul 29, 2019), and FDA guidance (Jul 10, 2019). This test is only for use under the Food and Drug Administration's Emergency Use Authorization. Swab ENTIRE NASOPHARYNX / Unknown 10/22/2019 8:10 EDT 10/22/2019 21:38 EDT Provider Outr Resulting Lab MICROBIOLOGY - GENERAL ORDERABLES [facility] [place], [place] * COVID-19 TESTING (10/22/2019 8:10 EDT) COVID-19 rt-PCR Result NEGATIVE Negative 10/25/2019 12:18 EDT [facility] Comment: 2019-novel Coronavirus (2019-nCoV) not detected by the qRT-PCR assay. Consider testing for other respiratory viruses or re-collecting for 2019-nCoV testing. Note: Optimum timing for peak viral levels during infections caused by 2019-nCoV have not been determined. Collection of multiple specimens from the same patient may be necessary to detect the virus. Limitations Positive results are indicative of active infection with SARS-CoV-2 but do not rule out bacterial infection or co-infection with other viruses. The agent detected may not be the definite cause of disease. In addition, detection of viral RNA may not indicate the presence of infectious virus or that SARS-CoV-2 is the causative agent for clinical symptoms. Negative results do not preclude SARS-CoV-2 infection and should not be used as the sole basis for patient management decisions. Negative results must be combined with clinical observations, patient history, and epidemiological information. False negative results may also occur if amplification inhibitors are present in the specimen or if inadequate numbers of organisms are present in the specimen. Optimum specimen types and timing for peak viral levels during infections caused by SARS-CoV-2 have not been fully determined. Collection of multiple specimens (types and time points) from the same patient may be necessary to detect the virus. The test was validated for use with upper respiratory specimens obtained via nasopharyngeal or oropharyngeal swabs in VTM, UTM, M4, M5, M6, saline, and MTM media. The performance of this test has not been established for other specimens. Specimens collected using other FDA recommended Specimen Collection Materials listed in the FDA COVID-19 [employer] communication (August 05, 2019) are processed with the caveat that they were not all validated for use with this test and the result must be interpreted in this context. Furthermore, a false negative results may occur if a specimen is improperly collected, transported or handled. If the virus mutates in the RT-PCR target region, SARS-CoV-2 may not be detected or may be detected less predictably. Inhibitors or other types of interference may produce a false negative result. An interference study evaluating the effect of common cold medications was not performed. This test is not FDA-cleared but its performance characteristics were established by our CLIA-certified, CAP-accredited, high complexity laboratory in accordance with CLIA regulations, College of [place] (CAP) guidelines (Jul 29, 2019), and FDA guidance (Jul 10, 2019). This test is only for use under the Food and Drug Administration's Emergency Use Authorization. Performing Lab [facility] 10/25/2019 12:18 EDT [facility] Swab ENTIRE NASOPHARYNX / Unknown 10/22/2019 8:10 EDT 10/22/2019 21:38 EDT Provider Outr Resulting Lab MICROBIOLOGY - GENERAL ORDERABLES [facility] [address] [place] [address] [facility] [place] documented in this encounter Visit Diagnoses Not on filedocumented in this encounter Care Teams General Operations Manager Relationship Specialty Start Date End Date Unknown, Provider, PCP - General 05/25/09 documented as of this encounter
--- OUTSIDE RECORDS SUMMARY | 2024-01-06 02:54 | XMS_ITS | Encounter Summary ---
Author Organization [facility] [place] [address] Care Team Providers Care Airways Control Specialist Name Role Phone Claritza Winter MARY Primary Care Provider [phone] Reason for Visit * Reason Comments Follow-up Encounter Details Date Type Department Care Team (Late st Contact Info) Description 07/05/2019 1:45 PM EST Office Visit Dermatology at [address] [place] [phone] Davion Vitale MD [address], [place] [address] Lupus erythematosus tumidus; Psoriasis Social History Tobacco Use Types Packs/Day Years Used Date Smoking Tobacco: Every Day Smokeless Tobacco: Never Sex and Gender Information Value Date Recorded Sex Assigned at Not on file Gender Identity Not on file Sexual Orientation Not on file documented as of this encounter Progress Notes * Davion Vitale MD - 07/05/2019 1:45 PM EST Problem: 1. 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 ??On hydroxychloroquine May 2017 through May 2019, unable to tolerate. 3. ??Patient works as an [employer] follows up and is tolerating methotrexate. She started to see some improvement with her tumid lupus. The itching is less and the rash is less. Physical examination reveals a pleasant 48-year-old woman who has a photo accentuated dermatitis ofthe dorsal forearms upper chest and a little bit across the back had is less pronounced today. Is much less inflamed. Assessment and plan: Tumid lupus erythematosus 1. Improving on methotrexate. 2. Continue current dosing taking 6 of the 2.5 mg tablets p.o. once weekly, Friday evenings after work, for a 15 mg dose. Dispense #78 with 0 refills for a 3-month supply. We will call sent to her [facility] in [facility]. 3. Continue folic acid 1 mg p.o. daily every day except the one day she takes methotrexate. She wasgiven a 3-month supply with 3 refills May 2019 4. Methotrexate labs obtained on June 28 were within acceptable range. Repeat again in 3 monthsreturn to clinic in 3 months for repeat check Cc: Claritza Winter APRN ?? documented in this encounter Plan of Treatment Upcoming Encounters Date Type Department Care Team (Late st Contact Info) Description 01/23/2024 9:00 AM EDT Office Visit Dermatology at [place] [address] [facility] [place] [address] Davion Vitale MD [address], [place] [address] documented as of this encounter Visit Diagnoses Diagnosis Lupus erythematosus tumidus Lupus erythematosus Psoriasis Other psoriasis documented in this encounter Care Teams Airways Control Specialist Relationship Specialty Start Date End Date Claritza Winter APRN [address] [place] [address] PCP - General Family Medicine 05/22/18 documented as of this encounter
--- OUTSIDE RECORDS SUMMARY | 2024-01-06 02:54 | XMS_ITS | Encounter Summary ---
[place] [address] Care Team Providers Care Scientific Writer Name Role Phone Claritza Winter APRN Primary Care Provider [phone] Encounter Details Date Type Department Care Team (Late st Contact Info) Description 01/19/2021 Refill Dermatology at [address] [address] April Bruner LPN Lupus erythematosus tumidus Social History Tobacco Use [...] 9:00 AM EDT Office Visit Dermatology at [address] [address] Davion Vitale MD [address] [place] [address], [place] [address] documented as of this encounter Visit Diagnoses Diagnosis Lupus erythematosus tumidus Lupus erythematosus documented in this encounter Care Teams Scientific Writer Relationship Specialty Start Date End Date Claritza Winter APRN [address] [place] [address] PCP - General Family Medicine 05/22/18 documented as of this encounter
--- OUTSIDE RECORDS SUMMARY | 2024-01-06 02:54 | XMS_ITS | Encounter Summary ---
Author Organization [facility] [place] [address] Care Team Providers Care Technical Proposal Writer Name Role Phone Claritza Winter MARY Primary Care Provider [phone] Encounter Details Date Type Department Care Team (Late st Contact Info) Description 01/28/2020 2:30 PM EDT TH Visit (TeleHealth) Dermatology at [address] [place] [address] Davion Vitale MD [address] [facility], [place] [address] Lupus erythematosus tumidus; Psoriasis Social History Tobacco Use Types Packs/Day Years Used Date Smoking Tobacco: Every Day Smokeless Tobacco: Never Sex and Gender Information Value Date Recorded Sex Assigned at Not on file Gender Identity Not on file Sexual Orientation Not on file documented as of this encounter Progress Notes * Davion Vitale MD - 01/28/2020 2:30 PM EDT Problem: 1. ??Follow-up tumid lupus erythematosus??on methotrexate 2. ??On hydroxychloroquine ??May 2017??through May 2019, but unable to tolerate. 3. ??Patient works as an [employer] 4. telehealth telephone visit ?? Dari follows up utilizing the [employer] telephone platform. She is tolerating the methotrexate. She has been having flares of it now and again on her chest and back however. Her arms are doing well. She has been taking medications methotrexate on Friday, folic acid daily the rest the week. She does smoke and she smokes one half pack a day and has for many years. This is a decrease from 1 pack a day previously she states overall there has been definite improvement in her skin. She does have some good days and some bad days but overall her skin is much much better controlled methotrexate and she is able to tolerate without stomach upset or side effects she is overall quite pleased. ?? Assessment and plan: Tumid lupus erythematosus 1. Improving on methotrexate 2. Patient tolerating well 3. Continue methotrexate taking 6 of the 2.5 mg tablets p.o. once weekly. Take this on Mondays for a 15 mg dose. Dispense # 78 with 0 refills for 3-month supply. Will call this into her [facility] pharmacy in [facility] 4. Continue folic acid 1 mg every day except for the one day she takes her methotrexate. Will: #90 for a 3-month supply with 3 refills today 5. Methotrexate labs obtained on January 19 were within normal limits repeat in 3 months return to clinic with a telephone visit in 3 months. 6. Stressed how cigarette smoking can exacerbate tumid lupus. Encouraged her to try to quit again she is tried a couple times before. She is never tried Chantix and I suggested contacting her PCP or [facility] smoking sensation for help with this. 7. Return to clinic in 3 months for an in office visit. ?? Cc: Claritza Winter APRN ?? documented in this encounter Plan of Treatment Upcoming Encounters Date Type Department Care Team (Late st Contact Info) Description 01/23/2024 9:00 AM EDT Office Visit Dermatology at [place] [address] [place] [address] Davion Vitale MD [address], [place] [address] documented as of this encounter Visit Diagnoses Diagnosis Lupus erythematosus tumidus Lupus erythematosus Psoriasis Other psoriasis documented in this encounter Care Teams Technical Proposal Writer Relationship Specialty Start Date End Date Claritza Winter APRN [address] [place] [address] PCP - General Family Medicine 05/22/18 documented as of this encounter
--- OUTSIDE RECORDS SUMMARY | 2024-01-06 02:54 | XMS_ITS | Encounter Summary ---
Author Organization [facility] Address [address] [place] [address] Care Team Providers Care Door To Door Selling Agent Name Role Phone Unknown, Provider Primary Care Provider Encounter Details Date Type Department Care Team (Latest Contact Info) Description 06/28/2019 Lab Requisition [facility] Pathology & Laboratory Medicine - [address] [id number] Claritza Winter, MARY [address] [facility] [address] [place] [address] Encounter for general adult medical examination without abnormal findings; Encounter for screening for malignant neoplasm of cervix; Encounter for gynecological examination (general) (routine) without abnormal findings Social History Tobacco Use Types Packs/Day Years Used Date Smoking Tobacco: Never Assessed Sex and Gender Information Value Date Recorded Sex Assigned at Not on file Gender Identity Not on file Sexual Orientation Not on file documented as of this encounter Plan of Treatment Not on file documented as of this encounter Procedures Procedure Name Priority Date/Time Associated Diagnosis Comments PAP TEST Today 06/25/2019 10:40 EST Encounter for general adult medical examination without abnormal findings Encounter for screening for malignant neoplasm of cervix Encounter for gynecological examination (general) (routine) without abnormal findings HPV DNA DETECTION WITH GENOTYPING, PCR Today 06/25/2019 10:40 EST Encounter for general adult medical examination without abnormal findings Encounter for screening for malignant neoplasm of cervix Encounter for gynecological examination (general) (routine) without abnormal findings documented in this encounter Results * HUMAN PAPILLOMAVIRUS (HPV) DETECTION-HIGH RISK TYPES (06/25/2019 10:40 EST) HPV other High Risk types, PCR Negative Negative 07/08/2019 13:46 [facility] Comment:No E6 or E7 mRNA is detected from HPV types 16,18,31,33,35,39,45,51,52,56,58,59,66, and 68 by thermostatic controls supervisor mediated amplification. Papanicolaou smear specimen (specimen) CERVIX UTERI STRUCTURE / Unknown 06/25/2019 10:40 EST 07/07/2019 14:39 EST Claritza Winter APRN MICROBIOLOGY - GE NERAL ORDERABLES [facility] [address] [place] [id number] * PAP TEST (06/25/2019 10:40 EST) Specimens A. Cervix and/or Endocervix, , ThinPrep Imaging System with Manual Evaluation 07/08/2019 13:47 [facility] Specimen Adequacy Satisfactory for Evaluation - transformation zone component absent 07/08/2019 13:47 [facility] General Categorization Negative for intraepithelial lesion or malignancy 07/08/2019 13:47 [facility] Descriptive Diagnosis Bacteria present morphologically consistent with Actinomyces species. Shift in derek present suggestive of bacterial vaginosis. 07/08/2019 13:47 [facility] Attestation By the signature below, the attending physician certifies that they have personally conducted a gross and/or microscopic examination of the described specimens and rendered or confirmed the above diagnosis. 07/08/2019 13:47 [facility] at 1346 Clinical History NONE 07/08/19 20 13:47 [facility] HPV The result for the Human Papillomavirus (HPV) Detection-High Risk Types is Negative. No E6 or E7 mRNA is detected from HPV types 16,18,31,33,35,39 ,45,51,52,56,58,5 9,66, and 68 by thermostatic controls supervisor mediated amplification.Jolie ting was performed on specimen [id number] and was resulted on 07/08/2019 1338 EST by SHELLY, LAB INSTRUMENT RESULTS IN 07/08/2019 13:47 EST [facility] Scanned Images 07/08/2019 13:47 EST [facility] Papanicolaou smear specimen (specimen) CERVIX UTERI STRUCTURE / Unknown 06/25/2019 10:40 EST 06/28/2019 11:01 EST Claritza Winter EARLY CHILDHOOD ASSOCIATE PATHOLOGY ORDERAB LES [facility] [address] [place] [address] documented in this encounter Visit Diagnoses Diagnosis Encounter for general adult medical examination without abnormal findings Unspecified general medical examination Encounter for screening for malignant neoplasm of cervix Screening for malignant neoplasm of the cervix Encounter for gynecological examination (general) (routine) without abnormal findings documented in this encounter Care Teams Door To Door Selling Agent Relationship Specialty Start Date End Date Unknown, Provider, PCP - General 05/25/09 documented as of this encounter
--- OUTSIDE RECORDS SUMMARY | 2024-01-06 02:54 | XMS_ITS | Encounter Summary ---
Author Organization [facility] Address [facility] [place] [address] Care Team Providers Care Cargo Checker Name Role Phone Claritza Winter APRN Primary Care Provider [phone] Encounter Details Date Type Department Care Team (Late st Contact Info) Description 11/19/2018 Refill Dermatology at [address] [phone] April Bruner, ON SITE MANAGER Social History Tobacco Use Types Packs/Day Years [...] 9:00 AM EDT Office Visit Dermatology at [address] [address] Davion Vitale MD [address] [place] [address], [place] [address] documented as of this encounter Visit Diagnoses Not on filedocumented in this encounter Care Teams Cargo Checker Relationship Specialty Start Date End Date Claritza Winter APRN [address] [place] [address] PCP - General Family Medicine 05/22/18 documented as of this encounter
--- OUTSIDE RECORDS SUMMARY | 2024-01-06 02:54 | XMS_ITS | Encounter Summary ---
[place] [address] Care Team Providers Care Neuropsychology Medical Consultant Name Role Phone Claritza Winter APRN Primary Care Provider [phone] Encounter Details Date Type Department Care Team (Late Contact Info) Description 01/28/2022 Telephone Dermatology at [address] [address] April Bruner LPN Social History Tobacco Use Types Packs/Day Years Used Date Smoking Tobacco: Every Day Smokeless Tobacco: Never Sex and Gender Information Value Date Recorded Sex Assigned at Not on file Gender Identity Not on file Sexual Orientation Not on file documented as of this encounter Miscellaneous Notes * Telephone Encounter - April Bruner LPN - 01/28/2022 1:28 PM EDT 01/28/22 MTX within normal limits, Dr. Pennington recommendation continue medication. Has follow up on 02/01/22.Patient voiced understanding. documented in this encounter Plan of Treatment Upcoming Encounters Date Type Department Care Team (Late st Contact Info) Description 01/23/2024 9:00 AM EDT Office Visit Dermatology at [address] [address] Davion Vitale MD [address] [facility], [place] [address] documented as of this encounter Visit Diagnoses Not on filedocumented in this encounter Care Teams Neuropsychology Medical Consultant Relationship Specialty Start Date End Date Claritza Winter APRN [address] [place] [address] PCP - General Family Medicine 05/22/18 documented as of this encounter
--- OUTSIDE RECORDS SUMMARY | 2024-01-06 02:54 | XMS_ITS | Encounter Summary ---
Author Organization [facility] Address [address] [place] [address] Care Team Providers Care Requirements Manager Name Role Phone Unknown, Provider Primary Care Provider Encounter Details Date Type Department Care Team (Late st Contact Info) Description 04/23/2020 Lab Requisition [facility] Pathology & Laboratory Medicine - [address] [address] Outr Resulting Lab, Provider Social History Tobacco [...] Procedure Name Priority Date/Time Associated Diagnosis Comments HIV 1/2 ANTIGEN AND ANTIBODY, 4TH GENERATION Routine 04/21/2020 14:20 EST documented in this encounter Results * HIV 1/2 ANTIGEN AND ANTIBODY, 4TH GENERATION (04/21/2020 14:20 EST) HIV 1 and 2 Antibody/p24 Antigen, 4th Generation Negative Negative 04/24/2020 10:44 EST [facility] Comment: If acute HIV-1 infection is suspected in a high risk ??patient, submit plasma specimen for HIV-1 RNA quantitation test. Fourth Generation assay performed on the Siemens [employer]. Blood VENOUS BLOOD / Unknown 04/21/2020 14:20 EST 04/23/2020 17:44 EST Provider Outr Resulting Lab IMMUNOLOGY A ND SEROLOGY ORDERABLES [facility] [address] [place] [address] documented in this encounter Visit Diagnoses Not on filedocumented in this encounter Care Teams Requirements Manager Relationship Specialty Start Date End Date Unknown, Provider, PCP - General 05/25/09 documented as of this encounter
--- OUTSIDE RECORDS SUMMARY | 2024-01-06 02:54 | XMS_ITS | Encounter Summary ---
[place] [address] Care Team Providers Care Hand Tube Winder Name Role Phone Claritza Winter MARY Primary Care Provider [phone] Reason for Visit * Reason Comments Follow-up Encounter Details Date Type Department Care Team (Late st Contact Info) Description 07/27/2021 8:30 AM EDT Office Visit Dermatology at [address] [place] [phone] Davion Vitale MD [address], [place] [address] Psoriasis; Lupus erythematosus tumidus Social History Tobacco Use Types Packs/Day Years Used Date Smoking Tobacco: Every Day Smokeless Tobacco: Never Sex and Gender Information Value Date Recorded Sex Assigned at Not on file Gender Identity Not on file Sexual Orientation Not on file documented as of this encounter Progress Notes * Davion Vitale MD - 07/27/2021 8:30 AM EDT Problem: 1. 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 ??On chloroquine 250 mg 1 p.o. daily since August 2020 3.?On hydroxychloroquine ??May 2017??through May 2019,??but??unable to tolerate. 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 She has been doing well but did have one flare since I saw her last with a glasslike feeling in her cheeks. She used with her 's triamcinolone and that helped matters. She is taking the chloroquine once a day and methotrexate 6 pills 1 day a week. She does not have any GI upset from her medications and is tolerating both of them well Physical examination reveals no active dermatitis. Her arms are clear with just some mild postinflammatory erythema of the right dorsal forearm. 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 Continue methotrexate taking 6 of the 2.5 mg tablets p.o. once weekly for a 15 mg dose. Dispense#78 for a 3-month supply with 1 refill to [facility] pharmacy in [place] 2. Continue chloroquine 250 mg take 1 p.o. once daily, dispense #90 for a 3- month supply with 1 refill 3. Continue folic acid 1 mg every day except for the 1 day she takes methotrexate. Dispense #90 fora 3-month supply with 3 refills 4. Continue to work on smoking cessation 5. Prescription will be called in for triamcinolone 0.1% cream to apply sparingly to areas of lupusas needed. Dispense 30 g with 2 refills. 6. Return to clinic in 6 months repeat check. Obtain repeat labs just prior to that visit. 7. Patient again was asked to obtain dilated eye examination at [facility] in [place].She had an appointment scheduled she states but developed Covid and had to cancel. CC: Claritza Winter APRN documented in this encounter Plan of Treatment Upcoming Encounters Date Type Department Care Team (Late st Contact Info) Description 01/23/2024 9:00 AM EDT Office Visit Dermatology at [place] [address] [place] [address] Davion Vitale MD [address], [place] [address] documented as of this encounter Visit Diagnoses Diagnosis Psoriasis Other psoriasis Lupus erythematosus tumidus Lupus erythematosus documented in this encounter Care Teams Hand Tube Winder Relationship Specialty Start Date End Date Claritza Winter APRN [address] [place] [address] PCP - General Family Medicine 05/22/18 documented as of this encounter
--- OUTSIDE RECORDS SUMMARY | 2024-01-06 02:54 | XMS_ITS | Encounter Summary ---
Author Organization [facility] Address [address] [place] [address] Care Team Providers Care Dental Hygiene Teacher Name Role Phone Unknown, Provider Primary Care Provider [phone] Encounter Details Date Type Department Care Team (Late st Contact Info) Description 05/24/2009 Orders Only [facility] - [facility] [place] [place] [address] [place], [place] [address] Homa Watt FNP [address] [place], [place] [id number] Social History Tobacco Use Types Packs/Day Years Used Date Smoking Tobacco: Never Assessed Sex and Gender Information Value Date Recorded Sex Assigned at Not on file Gender Identity Not on file Sexual Orientation Not on file documented as of this encounter Plan of Treatment Not on file documented as of this encounter Procedures Procedure Name Priority Date/Time Associated Diagnosis Comments CYTOPATHOLOGY Routine 05/24/2009 0:00 EST documented in this encounter Results * CYTOPATHOLOGY (05/24/2009 0:00 EST) Pathology Report: CYTOPATHOLOGY REPORT ? Reports generated via electronic interface contain original data; ? however they are lacking the format of the original report. ? Caution should be taken when reading/interpreti ng unformatted reports. ? Name: ? DARI MONTANO ? Accession #: ? [id number] ? : ? 1970 (Age: 38) ??F ?Collect Date: ? 05/24/2009 ? Location: ? [facility] ? Receive Date: ? 05/25/2009 ? Provider: ?EDILMA FINE MD ? Copy to: ? Specimen/Source: ?Pap Test, Endocervix, ThinPrep Imaging System with ? manual evaluation ? Last Menstrual Period: ? Other: ? HPVA - HPV testing requested if ASC-US on the current ThinPrep Pap test. ? SPECIMEN ADEQUACY ? Satisfactory for Evaluation ? - transformation zone component present ? GENERAL CATEGORIZATION ? Negative for Intraepithelial Lesion or Malignancy ? INTERPRETATION ? Shift in derek present suggestive of bacterial vaginosis. ? Document reviewed and electronically signed by: ? Jordon umler, CT(ASCP) ? Report Date: ??05/26/2009 14:35 ? End of Report ? [facility] 05/24/2009 05/25/2009 Homa Watt HANDLE MAKER PATHOLOGY ORDERABLES [facility] [address] [place] [address] documented in this encounter Visit Diagnoses Not on filedocumented in this encounter Care Teams Dental Hygiene Teacher Relationship Specialty Start Date End Date Unknown, Provider, PCP - General 05/25/09 documented as of this encounter
--- OUTSIDE RECORDS SUMMARY | 2024-01-06 02:54 | XMS_ITS | Encounter Summary ---
Author Organization [facility] Address [facility] [place] [address] Care Team Providers Care Java Tech Lead Name Role Phone Claritza Winter MARY Primary Care Provider [phone] Reason for Visit * Reason Comments Lupus 2 mo follow up for r shay flare Encounter Details Date Type Department Care Team (Late st Contact Info) Description 10/13/2020 9:15 AM EDT Office Visit Dermatology at [address] [place] [phone] Davion Vitale MD [address], [place] [address] Lupus erythematosus tumidus; Psoriasis Social History Tobacco Use Types Packs/Day Years Used Date Smoking Tobacco: Every Day Smokeless Tobacco: Never Sex and Gender Information Value Date Recorded Sex Assigned at Not on file Gender Identity Not on file Sexual Orientation Not on file documented as of this encounter Progress Notes * Davion Vitale MD - 10/13/2020 9:15 AM EDT Problem: 1. 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 On chloroquine 250 mg 1 p.o. daily since August 2020 3. ??On hydroxychloroquine ??May 2017??through May 2019,??but??unable to tolerate. 4. ??Patient works as an [employer] follows up and is doing much better. Her tumid lupus the indurated papules the glasslike feeling of her skin has resolved on the malar cheeks and also on the arms and forearms. She has noted some trace edema of the legs and hands. Physical examination reveals a pleasant 49-year-old woman who indeed has clearing of the tumid lupus. She has some trace edema of the hands and legs and feet. Assessment and plan: Tumid lupus erythematosus, again controlled with hydroxychloroquine and methotrexate 1. Tolerating chloroquine well, continue 250 mg 1 p.o. daily dispense #90 for a 3-month supply with0 refills 2. Continue methotrexate taking 6 of the 2.5 mg tabs p.o. once weekly for a 15 mg dose. Dispense 60with 0 refills for a 2-month supply. We will call this into her [facility] pharmacy in [place]. She still has a 1 month supply left on the last prescription 3. Continue folic acid 1 mg every day except the 1 day that she takes her methotrexate. She was given a 1 year supply of this in January 2020 4. Continue to work on smoking cessation 5. Return to clinic in 3 months for repeat check, repeat labs in 3 months also.. CC: Claritza Winter APRN documented in this encounter Plan of Treatment Upcoming Encounters Date Type Department Care Team (Late st Contact Info) Description 01/23/2024 9:00 AM EDT Office Visit Dermatology at [place] [address] [place] [phone] Davion Vitale MD [address], [place] [address] documented as of this encounter Visit Diagnoses Diagnosis Lupus erythematosus tumidus Lupus erythematosus Psoriasis Other psoriasis documented in this encounter Care Teams Java Tech Lead Relationship Specialty Start Date End Date Claritza Winter APRN [address] [place] [address] PCP - General Family Medicine 05/22/18 documented as of this encounter
--- OUTSIDE RECORDS SUMMARY | 2024-01-06 02:54 | XMS_ITS | Encounter Summary ---
[place] [address] Care Team Providers Care Shotgun Shell Assembly Machine Operator Name Role Phone Claritza Winter MARY Primary Care Provider [phone] Reason for Visit * Reason Comments Follow-up Encounter Details Date Type Department Care Team (Late st Contact Info) Description 02/05/2022 11:15 AM EDT Office Visit Dermatology at [address] [place] [phone] Davion Vitale MD [address], [place] [address] Lupus erythematosus tumidus Social History Tobacco Use Types Packs/Day Years Used Date Smoking Tobacco: Every Day Smokeless Tobacco: Never Sex and Gender Information Value Date Recorded Sex Assigned at Not on file Gender Identity Not on file Sexual Orientation Not on file documented as of this encounter Progress Notes * Davion Vitale MD - 02/05/2022 11:15 AM EDT Problem: 1. 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 ??On chloroquine 250 mg 1 p.o. daily since August 2020 3.?On hydroxychloroquine ??May 2017??through May 2019,??but??unable to tolerate. 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 She has been doing well but did have one flare since I saw her last with a glasslike feeling on her back when she got a little bit of sun at [place].She used her triamcinolone and that helped matters. She is taking the chloroquine once a day and methotrexate 6 pills 1 day a week for a 15 mg dose. She does not have any GI upset from her medications and is tolerating both of them well. Recent labs are within normal limits. ?? Physical examination reveals no active dermatitis. Her arms are clear with just some mild postinflammatory erythema of the right dorsal forearm. ?? 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 Continue methotrexate taking 6 of the 2.5 mg tablets p.o. once weekly for a 15 mg dose. Dispense#78 for a 3-month supply with 1 refill to [facility] pharmacy in [place] 2. Continue chloroquine 250 mg take 1 p.o. once daily, dispense #90 for a 3- month supply with 1 refill. She states she does not need this today 3. Continue folic acid 1 mg every day except for the 1 day she takes methotrexate. Dispense #90 fora 3-month supply with 3 refills. She states she does not need this today. 4. Continue to work on smoking cessation 5. Prescription will be called in for triamcinolone 0.1% cream to apply sparingly to areas of lupusas needed. Dispense 30 g with 2 refills. She states she does not need this today 6. Return to clinic in 6 months repeat check. Obtain repeat labs just prior to that visit. 7. Patient again was asked to obtain dilated eye examination at [facility] in [place].However she states that her insurance no longer covers [facility] eye care so I mentioned the option of Dr. Yinka Carias at [facility]. CC: Claritza Winter APRN documented in this encounter Plan of Treatment Upcoming Encounters Date Type Department Care Team (Late st Contact Info) Description 01/23/2024 9:00 AM EDT Office Visit Dermatology at [place] [address] [place] [phone] Davion Vitale MD [address], [place] [address] documented as of this encounter Visit Diagnoses Diagnosis Lupus erythematosus tumidus Lupus erythematosus documented in this encounter Care Teams Shotgun Shell Assembly Machine Operator Relationship Specialty Start Date End Date Claritza Winter APRN [address] [place] [address] PCP - General Family Medicine 05/22/18 documented as of this encounter
--- OUTSIDE RECORDS SUMMARY | 2024-01-06 02:54 | XMS_ITS | Encounter Summary ---
Author Organization [facility] Address [address] [place] [address] Care Team Providers Care Spray Unit Feeder Name Role Phone Unknown, Provider Primary Care Provider Encounter Details Date Type Department Care Team (Late st Contact Info) Description 01/23/2017 Results Only [facility] [phone] Roman Flannery, MARY [address] [facility] [address] [place] [phone] Social History Tobacco Use Types Packs/Day Years Used Date Smoking Tobacco: Never Assessed Sex and Gender Information Value Date Recorded Sex Assigned at Not on file Gender Identity Not on file Sexual Orientation Not on file documented as of this encounter Plan of Treatment Not on file documented as of this encounter Procedures Procedure Name Priority Date/Time Associated Diagnosis Comments SURGICAL PATHOLOGY Routine 01/23/2017 15 :47 EDT documented in this encounter Results * SURGICAL PATHOLOGY (01/23/2017 15:47 EDT) Pathology Report: SURGICAL PATHOLOGY REPORT Reports generated via electronic interface contain original data; however they are lacking the format of the original report. Caution should be taken when reading/interpreting unformatted reports. Name: ? DARI MONTANO ? Accession #: ? [id number] ? : ? 1970 (Age: 46) ??F ? Collect Date: ? 01/23/2017 ? Location: ? [facility] ? Receive Date: ? 01/24/2017 ? Provider: ROMAN FLANNERY ROOFING APPRENTICE Copy to: ? Final Pathologic Diagnosis: A. ??SKIN OF ARM, LEFT FOREARM, PUNCH BIOPSY: - Mild superficial perivascular inflammation. ??(See microscopic and comment.) B. ??SKIN OF ARM, RIGHT FOREARM, PUNCH BIOPSY: - Mild superficial perivascular inflammation. ??(See microscopic and comment.) Comment: The overall histologic features are non-specific, but do show a mild superficial perivascular inflammatory infiltrate. ??The differential diagnosis may include a dermal hypersensitivity reaction including a drug eruption or allergic reaction. Clinical correlation will be necessary in order to narrow the differential diagnosis. This case was shown at interdepartmental consensus conference. ??(Dr. Benítez)/jaki Microscopic Description: The biopsies from the left and right forearm show similar features. ??There is a mild perivascular inflammatory infiltrate composed of lymphocytes and plasma cells. ??The overlying epidermis is unremarkable. ??Multiple levels are obtained of both biopsies, and PAS stains fail to show fungal organisms. ??(Dr. Benítez)/jaki Document reviewed and electronically signed by: RODDY BENÍTEZ MD Report ??Date: 01/29/2017 14:39 By the signature above, the attending physician certifies that he/she has personally conducted a gross and/or microscopic examination of the described specimens and rendered or confirmed the above diagnosis. Specimen(s) Received: A. ??Lt FA, 2.0 mm punch biopsy B. ??Rt FA, 2.0 mm punch biopsy Clinical History: Rash to raymon forearms x7 yrs; no improvements with topical steroids or antihistamines; itches, ng, worsens in heat and anxiety. Gross Description: A. ?Received in formalin labelled with proper patient identification (initials B, B) and skin biopsy left arm is a punch biopsy of keller-pink skin (0.2 cm in diameter and 0.1 cm in thickness). Submitted intact in A1. B. ?Received in formalin labelled with proper patient identification (initials B, B) and skin biopsy right arm is a punch biopsy of keller-pink skin (0.2 cm in diameter and 0.1 cm in thickness). Submitted intact in B1. Dr. Leblanc 01/25/2017 7:56 AM End of Report [facility] 01/23/2017 15:4 7 EDT 01/24/2017 15:47 EDT Roman Flannery ROOFING APPRENTICE PATHOLOGY ORDERAB LES [facility] [address] [place] [address] documented in this encounter Visit Diagnoses Not on filedocumented in this encounter Care Teams Spray Unit Feeder Relationship Specialty Start Date End Date Unknown, Provider, PCP - General 05/25/09 documented as of this encounter
--- OUTSIDE RECORDS SUMMARY | 2024-01-06 02:54 | XMS_ITS | Encounter Summary ---
[place] [address] Care Team Providers Care Airplane Dispatch Clerk Name Role Phone Claritza Winter APRN Primary Care Provider [phone] [phone] Reason for Visit * Reason Onset Date Comments Medication Refill 10/13/2020 Encounter Details Date Type Department Care Team (Late st Contact Info) Description 10/13/2020 Refill Dermatology at [address] [phone] Davion Vitale MD [address] [place] [address], [place] [address] Lupus erythematosus tumidus Social History Tobacco Use [...] 9:00 AM EDT Office Visit Dermatology at [address] [phone] Davion Vitale MD [address] [place] [address], [facility] [place] [address] documented as of this encounter Visit Diagnoses Diagnosis Lupus erythematosus tumidus Lupus erythematosus documented in this encounter Care Teams Airplane Dispatch Clerk Relationship Specialty Start Date End Date Claritza Winter APRN [address] [place] [address] PCP - General Family Medicine 05/22/18 documented as of this encounter
--- OUTSIDE RECORDS SUMMARY | 2024-01-06 02:54 | XMS_ITS | Encounter Summary ---
Author Organization [facility] [place] [address] Care Team Providers Care Spar Machine Operator Name Role Phone Claritza Winter APRN Primary Care Provider [phone] [phone] Encounter Details Date Type Department Care Team (Late st Contact Info) Description 07/28/2020 Refill Dermatology at [address] [phone] April Bruner, SPRAY GUN REPAIRER HELPER Social History Tobacco Use Types Packs/Day Years [...] 9:00 AM EDT Office Visit Dermatology at [address] [phone] Davion Vitale MD [address] [place] [address], [place] [address] documented as of this encounter Visit Diagnoses Not on filedocumented in this encounter Care Teams Spar Machine Operator Relationship Specialty Start Date End Date Claritza Winter APRN [address] [place] [address] PCP - General Family Medicine 05/22/18 documented as of this encounter
--- OUTSIDE RECORDS SUMMARY | 2024-01-06 02:54 | XMS_ITS | Encounter Summary ---
[place] [address] Care Team Providers Care Clamp Operator Name Role Phone Claritza Winter APRN Primary Care Provider +1 [phone] Encounter Details Date Type Department Care Team (Latest Contact Info) Description 01/17/2023 Travel Social History Tobacco Use Types Packs/Day [...] 9:00 AM EDT Office Visit Dermatology at [address] [place] [phone] Davion Vitale MD [address], [place] [address] documented as of this encounter Visit Diagnoses Not on filedocumented in this encounter Care Teams Clamp Operator Relationship Specialty Start Date End Date Claritza Winter APRN [address] [place] [address] PCP - General Family Medicine 05/22/18 documented as of this encounter
--- OUTSIDE RECORDS SUMMARY | 2024-01-06 02:54 | XMS_ITS | Encounter Summary ---
[place] [address] Care Team Providers Care Warehouse Record Clerk Name Role Phone Claritza Winter APRN Primary Care Provider [phone] [phone] Encounter Details Date Type Department Care Team (Late st Contact Info) Description 01/12/2021 Refill Dermatology at [address] [phone] April Bruner LPN Lupus erythematosus tumidus Social [...] 9:00 AM EDT Office Visit Dermatology at [address] [address] Davion Vitale MD [address] [place] [address], [place] [address] documented as of this encounter Visit Diagnoses Diagnosis Lupus erythematosus tumidus Lupus erythematosus documented in this encounter Care Teams Warehouse Record Clerk Relationship Specialty Start Date End Date Claritza Winter APRN [address] [place] [address] PCP - General Family Medicine 05/22/18 documented as of this encounter
--- OUTSIDE RECORDS SUMMARY | 2024-01-06 02:54 | XMS_ITS | Encounter Summary ---
Author Organization [facility] [place] [address] Care Team Providers Care Insulation And Flooring Assembler Name Role Phone Claritza Winter MARY Primary Care Provider [phone] Reason for Visit * Reason Comments Medication Refill Encounter Details Date Type Department Care Team (Late Contact Info) Description 05/17/2022 Refill Dermatology at [address] [place] [phone] Davion Vitale MD [address] [facility] [facility], [place] [address] Lupus erythematosus tumidus Social History Tobacco Use Types Packs/Day Years Used Date Smoking Tobacco: Every Day Smokeless Tobacco: Never Sex and Gender Information Value Date Recorded Sex Assigned at Not on file Gender Identity Not on file Sexual Orientation Not on file documented as of this encounter Miscellaneous Notes * Telephone Encounter - Keli May RN - 05/20/2022 3:37 PM EST Called patient she stated that she will be out of her Chloroquine on Friday. Discussed with Dr. Vitale and his recommendation to renew prescription Chloroquine 250mg tablets. Take 1 tablet by mouthdaily for lupus. Dispense # 77 with no refills. This will cover patient until her follow up on 08/09/2022. E- scribed to [facility] in [facility]. Patient notified. documented in this encounter Plan of Treatment Upcoming Encounters Date Type Department Care Team (Late Contact Info) Description 01/23/2024 9:00 AM EDT Office Visit Dermatology at [place] [address] [address] Davion Vitale MD [address], [place] [address] documented as of this encounter Visit Diagnoses Diagnosis Lupus erythematosus tumidus Lupus erythematosus documented in this encounter Care Teams Insulation And Flooring Assembler Relationship Specialty Start Date End Date Claritza Winter APRN [address] [place] [address] PCP - General Family Medicine 05/22/18 documented as of this encounter
--- OUTSIDE RECORDS SUMMARY | 2024-01-06 02:54 | XMS_ITS | Referral Summary ---
Author Organization [facility] Address [address] [place] [address] Care Team Providers Care Film Crew Member Name Role Phone Unknown, Provider MD Primary Care Provider Social History Tobacco Use Types Packs/Day Years Used Date Smoking Tobacco: Never Assessed Interpersonal Safety Answer Date Record ed Physically Hurt Never 12/12/2019 Verbally Threaten Not on file 12/12/2019 Sex and Gender Information Value Date Recorded Sex Assigned at Not on file Gender Identity Not on file Sexual Orientation Not on file Plan of Treatment Not on file Procedures Procedure Name Priority Date/Time Associated Diagnosis Comments HCV RNA DETECT QUANT Routine 04/21/2020 14:20 EST from Last 3 Months or Most Recently Relevant to Health Maintenance Results * HCV RNA DETECT QUANT (04/21/2020 14:20 EST) HCV RNA Qualitative Undetected Undetected 04/24/2020 14:11 EST [facility] Blood VENOUS BLOOD / Unknown 04/21/2020 14:20 EST 04/23/2020 17:39 EST Narrative [facility] - 04/24/2020 14:11 EST The quantification range of this assay is 15 IU/mL to 100,000,000 IU/mL. ??Testing was performed on the HUMPHREY Ampliprep/HUMPHREY TaqMan HCV v2.0 ([employer] Provider Outr Resulting Lab CHEMISTRY & BLOOD GAS ORDERABLES [facility] [address] [place] [address] from Last 3 Months or Most Recently Relevant to Health Maintenance Care Teams Film Crew Member Relationship Specialty Start Date End Date Unknown, Provider, PCP - General 05/25/09
--- OUTSIDE RECORDS SUMMARY | 2024-01-06 02:54 | XMS_ITS | Encounter Summary ---
[facility] Organization [facility] [place] [address] Care Team Providers Care Advanced Registered Nurse Name Role Phone Claritza Winter APRN Primary Care Provider [phone] [phone] Reason for Visit * Reason Comments Medication Refill Encounter Details Date Type Department Care Team (Late st Contact Info) Description 05/19/2018 Refill Dermatology at [address] [address] Davion Vitale MD [address] [place] [id number] Social History Tobacco Use Types Packs/Day Years [...] 9:00 AM EDT Office Visit Dermatology at [address] [phone] Davion Vitale MD [address] [place] [address] [place] [address] documented as of this encounter Visit Diagnoses Not on filedocumented in this encounter Care Teams Advanced Registered Nurse Relationship Specialty Start Date End Date Claritza Winter APRN [address] [place] [address] PCP - General Family Medicine 05/22/18 documented as of this encounter
--- OUTSIDE RECORDS SUMMARY | 2024-01-06 02:54 | XMS_ITS | Encounter Summary ---
Author Organization [facility] [place] [address] Care Team Providers Care Carbon Sequestration Plant Manager Name Role Phone Claritza Winter MARY Primary Care Provider [phone] Reason for Visit * Reason Comments Follow-up Encounter Details Date Type Department Care Team (Late st Contact Info) Description 01/17/2023 8:30 AM EDT Office Visit Dermatology at [address] [place] [address] Davion Vitale MD [address], [place] [address] Lupus erythematosus tumidus Social History Tobacco Use Types Packs/Day Years Used Date Smoking Tobacco: Every Day Smokeless Tobacco: Never Sex and Gender Information Value Date Recorded Sex Assigned at Not on file Gender Identity Not on file Sexual Orientation Not on file documented as of this encounter Progress Notes * Davion Vitale MD - 01/17/2023 8:30 AM EDT Problem: 1. 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 On chloroquine 250 mg 1 p.o. daily since August 2020 3. On hydroxychloroquine May 2017 through May 2019, but unable to tolerate. 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 He has been doing well. Shehas not experienced the typical glasslike feeling in her arms that she normally gets with flares.She has been avoiding the sun. She has not yet had an eye appointment at [facility]. We had sent a referral when I saw her last in July. Physical examination reveals a pleasant 52-year-old woman who has mild erythema and patches minimally over the dorsal forearms bilaterally. Other areas show postinflammatory mild hyperpigmentation also, as small 1 to 1 1/2 cm patches. There is no significant inflammation. She has no significant active dermatitis. 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 In February [place] chloroquine in August restart. We will plan for a chloroquine holiday this winter. Continue however taking methotrexate. 2. Continue methotrexate taking 6 of the 2.5 mg tablets p.o. once weekly for a 15 mg dose dispense #78 for a 3-month supply with 1 refill to [facility] in [place] 3. Continue chloroquine 250 mg take 1 p.o. daily. Dispense #90 for erythema supply with 1 refill. Iwill send refill to [facility] 4. Continue folic acid 1 mg every day except except the 1 day she takes her methotrexate. Dispense #90 for a 3-month supply with 1 refill 5. Continue to work on smoking cessation. She is still smoking a pack a day 6. Again refer patient to [facility] eye care for dilated eye examination to rule out retinal toxicityfrom chloroquine. This should 7. Labs from January within normal limits repeat again in 6 months return to clinic in 6 months. CC: Claritza Winter APRN documented in this encounter Plan of Treatment Upcoming Encounters Date Type Department Care Team (Late st Contact Info) Description 01/23/2024 9:00 AM EDT Office Visit Dermatology at [place] [address] [place] [address] Davion Vitale MD [address], [place] [address] documented as of this encounter Visit Diagnoses Diagnosis Lupus erythematosus tumidus Lupus erythematosus documented in this encounter Care Teams Carbon Sequestration Plant Manager Relationship Specialty Start Date End Date Claritza Winter APRN [address] [place] [address] PCP - General Family Medicine 1/11/19 documented as of this encounter
--- OUTSIDE RECORDS SUMMARY | 2024-01-06 02:54 | XMS_ITS | Encounter Summary ---
Author Organization [facility] Address [address] [place] [address] Care Team Providers Care Director Of Casino Name Role Phone Unknown, Provider Primary Care Provider Encounter Details Date Type Department Care Team (Latest Contact Info) Description 03/15/2015 11:48 EST - 03/15/2015 23:59 EST Hospital Encounter [address] [address] Unknown, Provider, Discharge Disposition: Home or Self Care Social History Tobacco Use Types Packs/Day Years Used Date Smoking Tobacco: Never Assessed Sex and Gender Information Value Date Recorded Sex Assigned at Not on file Gender Identity Not on file Sexual Orientation Not on file documented as of this encounter Discharge Disposition Disposition Code Departure Means Destination Home or Self Detention documented in this encounter Plan of Treatment Not on file documented as of this encounter Visit Diagnoses Not on filedocumented in this encounter Care Teams Director Of Casino Relationship Specialty Start Date End Date Unknown, Provider, PCP - General 05/25/09 documented as of this encounter
--- OUTSIDE RECORDS SUMMARY | 2024-01-06 02:54 | XMS_ITS | Encounter Summary ---
Author Organization [facility] [place] [address] Care Team Providers Care Casting Inspector Name Role Phone Claritza Winter APRN Primary Care Provider [phone] Reason for Visit * Reason Comments Medication Refill Encounter Details Date Type Department Care Team (Late Contact Info) Description 07/10/2023 Refill Dermatology at [address] [address] Davion Vitale MD [address] [place] [address], [place] [address] Lupus erythematosus tumidus Social History Tobacco Use [...] 9:00 AM EDT Office Visit Dermatology at [address] [phone] Davion Vitale MD [address] [place] [address], [place] [address] documented as of this encounter Visit Diagnoses Diagnosis Lupus erythematosus tumidus Lupus erythematosus documented in this encounter Care Teams Casting Inspector Relationship Specialty Start Date End Date Claritza Winter APRN [address] [place] [address] PCP - General Family Medicine 05/22/18 documented as of this encounter
--- OUTSIDE RECORDS SUMMARY | 2024-01-06 02:54 | XMS_ITS | Encounter Summary ---
Author Organization [facility] Address [facility] [place] [address] Care Team Providers Care Behaviour Support Teacher Name Role Phone Claritza Winter MARY Primary Care Provider [phone] Reason for Visit * Reason Comments Follow-up Encounter Details Date Type Department Care Team (Late st Contact Info) Description 11/19/2018 10:15 AM EDT Office Visit Dermatology at [address] [place] [address] Davion Vitale MD [address] [facility], [place] [address] Lupus erythematosus tumidus Social History Tobacco Use Types Packs/Day Years Used Date Smoking Tobacco: Every Day Smokeless Tobacco: Never Sex and Gender Information Value Date Recorded Sex Assigned at Not on file Gender Identity Not on file Sexual Orientation Not on file documented as of this encounter Progress Notes * Davion Vitale MD - 11/19/2018 10:15 AM EDT Problem: 1. Follow-up tumid lupus erythematosus 2. On hydroxychloroquine since May 2017 3. 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 Because of this side effect, she is only really taking it once a day since I last saw her. She is still having a mild flare with the summer weather despite the use ofSPF 45 sunscreen. I attempted to try to taper her last visit in May from twice daily to daily but within a short time the lupus was flaring even in the midst middle of the winter. Physical examination reveals a photo accentuated dermatitis of the dorsal forearms the face upper chest and back. Is consistent with a mildly flaring tumid lupus erythematosus Assessment plan: Tumid lupus erythematosus, mild flare 1. Attempt to take hydroxychloroquine after lunch on full stomach and after dinner on a full stomach. When she takes the evening dose on a full stomach until now there is been no problems with nausea. 2. Will call in more of her hydroxychloroquine to take 200 mg 1 p.o. twice daily. Dispense number 180 for a 3-month supply with 1 refill. This will go into her [facility] in [place]. 3. If not seeing improvement within a month return to clinic otherwise return to clinic in 6 monthsfor repeat check 4. Encourage patient to use a higher SPF sunscreen as high as she can find in a spray which she prefers. Otherwise she can use her grandsons SPF 100 lotion. CC: Claritza Winter APRN documented in this encounter Plan of Treatment Upcoming Encounters Date Type Department Care Team (Late st Contact Info) Description 01/23/2024 9:00 AM EDT Office Visit Dermatology at [place] [address] [place] [address] Davion Vitale MD [address], [place] [address] documented as of this encounter Visit Diagnoses Diagnosis Lupus erythematosus tumidus Lupus erythematosus documented in this encounter Care Teams Behaviour Support Teacher Relationship Specialty Start Date End Date Claritza Winter APRN [address] [place] [address] PCP - General Family Medicine 05/22/18 documented as of this encounter
--- OUTSIDE RECORDS SUMMARY | 2024-01-06 02:54 | XMS_ITS | Encounter Summary ---
Author Organization [facility] Address [facility] [place] [address] Care Team Providers Care Building And Construction Manager Name Role Phone Claritza Winter APRN Primary Care Provider [phone] [phone] Encounter Details Date Type Department Care Team (Late st Contact Info) Description 10/08/2019 Refill Dermatology at [address] [phone] April Bruner, CUTTING DEPARTMENT SUPERVISOR Social History Tobacco Use Types Packs/Day Years [...] 9:00 AM EDT Office Visit Dermatology at [address] [phone] Davion Vitale MD [address] [place] [address], [place] [address] documented as of this encounter Visit Diagnoses Not on filedocumented in this encounter Care Teams Building And Construction Manager Relationship Specialty Start Date End Date Claritza Winter APRN [address] [place] [address] PCP - General Family Medicine 05/22/18 documented as of this encounter
--- OUTSIDE RECORDS SUMMARY | 2024-01-06 02:54 | XMS_ITS | Encounter Summary ---
Author Organization [facility] [place] [address] Care Team Providers Care Viscose Cellar Worker Name Role Phone Claritza Winter MARY Primary Care Provider [phone] [phone] Reason for Visit * Reason Comments Follow-up Encounter Details Date Type Department Care Team (Late st Contact Info) Description 04/28/2020 2:30 PM EST Office Visit Dermatology at [address] [place] [phone] Davion Vitale MD [address], [place] [address] Lupus erythematosus tumidus Social History Tobacco Use Types Packs/Day Years Used Date Smoking Tobacco: Every Day Smokeless Tobacco: Never Sex and Gender Information Value Date Recorded Sex Assigned at Not on file Gender Identity Not on file Sexual Orientation Not on file documented as of this encounter Progress Notes * Davion Vitale MD - 04/28/2020 2:30 PM EST Problem: 1. ??Follow-up tumid lupus erythematosus??on methotrexate 2. ??On hydroxychloroquine ??May 2017??through May 2019, but unable to tolerate. 3. 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 She remains on methotrexate for her tumid lupus erythematosus. Our last visit with 3 months ago and was a telehealth telephone visit. She is still having some problems with her back but her face and arms are well controlled. Unfortunately she still smoking between 1/2 pack and a 4 pack a day. She has good intentions to try to cut back and quit smoking. 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 Other family stress currently for her. She wonders if she can safely get the Covid vaccination next weekand I told her yes. She has triamcinolone 0.1% cream at home that she uses for short periods of time for activity on her lateral cheeks arms and back. Physical examination reveals a pleasant 49-year-old woman who has clearing of the forearms and armsand some minimal patchy erythema on the lateral cheeks. However on the back she has a moderate number some small indurated plaques with irregular margins particular in the mid back consistent with ongoing tumid lupus erythematosus. Overall she is very pleased with her level of control. Assessment and plan: Tumid lupus erythematosus with some activity on lateral cheeks and on back, patient still pleased with level of control. I do think we can do better. 1. Continue methotrexate taking 6 of the 2.5 g tablets p.o. once weekly. Take this on Mondays for a15 mg dose. Dispense #78 with 0 refills for a 3-month supply. We will call this into her [facility] pharmacy in [facility]. 2. Continue folic acid 1 mg p.o. every day except except 1 day she takes methotrexate. She was given a 3-month supply with 3 refills in January 2020 3. Labs from 04/21 within normal limits. Repeat in 3 months return to clinic in 3 months. 4. Continue to stress how important quitting cigarette smoking is. Discussed the smoking cessation group at [facility]. She needs to set a date and take that first step. Her who smoked for many years woke up one morning does decide to quit smoking and did so. She should follow his example 5. Return to clinic in 3 months for repeat check. May use triamcinolone cream twice daily for back sites. CC: Claritza Winter APRN documented in this encounter Plan of Treatment Upcoming Encounters Date Type Department Care Team (Late st Contact Info) Description 01/23/2024 9:00 AM EDT Office Visit Dermatology at [place] [address] [facility] [place] [phone] Davion Vitale MD [address] [facility], [place] [address] documented as of this encounter Visit Diagnoses Diagnosis Lupus erythematosus tumidus Lupus erythematosus documented in this encounter Care Teams Viscose Cellar Worker Relationship Specialty Start Date End Date Claritza Winter APRN [address] [place] [address] PCP - General Family Medicine 05/22/18 documented as of this encounter
--- OUTSIDE RECORDS SUMMARY | 2024-01-06 02:54 | XMS_ITS | Encounter Summary ---
Author Organization [facility] Address [address] [place] [address] Care Team Providers Care Heading Machine Operator Name Role Phone Unknown, Provider Primary Care Provider Encounter Details Date Type Department Care Team (Late st Contact Info) Description 04/23/2020 Lab Requisition [facility] Pathology & Laboratory Medicine - [address] [address] Outr Resulting Lab, Provider Social History Tobacco [...] RNA DETECT QUANT Routine 04/21/2020 14:20 EST documented in this encounter Results * HCV RNA DETECT QUANT (04/21/2020 14:20 EST) HCV RNA Qualitative Undetected Undetected 04/24/2020 14:11 EST [facility] Blood VENOUS BLOOD / Unknown 04/21/2020 14:20 EST 04/23/2020 17:39 EST Narrative [facility] - 04/24/2020 14:11 EST The quantification range of this assay is 15 IU/mL to 100,000,000 IU/mL. ??Testing was performed on the [employer] Ampliprep/HUMPHREY TaqMan HCV v2.0 ([employer] Provider Outr Resulting Lab CHEMISTRY & BLOOD GAS ORDERABLES [facility] [address] [place] [address] documented in this encounter Visit Diagnoses Not on filedocumented in this encounter Care Teams Heading Machine Operator Relationship Specialty Start Date End Date Unknown, Provider, PCP - General 05/25/09 documented as of this encounter
--- OUTSIDE RECORDS SUMMARY | 2024-01-06 02:54 | XMS_ITS | Encounter Summary ---
[place] [address] Care Team Providers Care Drug Worker Name Role Phone Claritza Winter APRN Primary Care Provider [phone] [phone] Encounter Details Date Type Department Care Team (Late st Contact Info) Description 02/05/2022 Refill Dermatology at [address] [phone] April Bruner LPN Lupus erythematosus tumidus Social [...] AM EDT Office Visit Dermatology at [address] [phone] Davion Vitale MD [address] [place] [address], [place] [address] documented as of this encounter Visit Diagnoses Diagnosis Lupus erythematosus tumidus Lupus erythematosus documented in this encounter Care Teams Drug Worker Relationship Specialty Start Date End Date Claritza Winter APRN [address] [place] [address] PCP - General Family Medicine 05/22/18 documented as of this encounter
--- OUTSIDE RECORDS SUMMARY | 2024-01-06 02:54 | XMS_ITS | Encounter Summary ---
Author Organization [facility] [place] [address] Care Team Providers Care Dowel Setting Machine Operator Name Role Phone lCaritza Winter MARY Primary Care Provider [phone] [phone] Reason for Visit * Reason Comments Follow-up Encounter Details Date Type Department Care Team (Late st Contact Info) Description 05/22/2018 4:15 PM EST Office Visit Dermatology at [address] [place] [phone] Davion Vitale MD [address] [facility], [place] [address] Lupus erythematosus tumidus Social History Tobacco Use Types Packs/Day Years Used Date Smoking Tobacco: Every Day Smokeless Tobacco: Never Sex and Gender Information Value Date Recorded Sex Assigned at Not on file Gender Identity Not on file Sexual Orientation Not on file documented as of this encounter Progress Notes * Davion Vitale MD - 05/22/2018 4:15 PM EST Problem: 1. Follow-up tumid lupus erythematosus 2. On hydroxychloroquine since May 2017 aDri follows up and is doing beautifully. Her skin is clear. She had no flares. She had her eyes checked yesterday at [facility]. She had a dilated eye exam. She is not sure if they saw any Plaquenil-induced hyperpigmentation of the retina. They did change her current I glass correction. Shedid ask the staff there to send a copy of their clinic visit dictation to my office. Physical examination reveals a pleasant 47-year-old woman who has no residual erythema on the upperchest or back. The nodules of those areas in the legs are clear. She has no active lupus today. Assessment plan: Tumid lupus erythematosus, well-controlled. 1. Patient aware of ongoing photosensitivity. She must avoid sun exposure. 2. We will attempt to taper hydroxychloroquine from 200 mg twice daily to just once daily dosing. Dispense #90 for a 3-month supply with 1 refill 3. Return to clinic in 6 months recheck. 4. Congratulated overall on her wonderful response both of us are quite pleased CC: Claritza Winter APRN documented in this encounter Plan of Treatment Upcoming Encounters Date Type Department Care Team (Late st Contact Info) Description 01/23/2024 9:00 AM EDT Office Visit Dermatology at [place] [address] [place] [address] Davion Vitale MD [address] [facility], [place] [address] documented as of this encounter Visit Diagnoses Diagnosis Lupus erythematosus tumidus Lupus erythematosus documented in this encounter Care Teams Dowel Setting Machine Operator Relationship Specialty Start Date End Date Claritza Winter APRN [address] [place] [address] PCP - General Family Medicine 05/22/18 documented as of this encounter
--- OUTSIDE RECORDS SUMMARY | 2024-01-06 02:54 | XMS_ITS | Encounter Summary ---
Author Organization [facility] [place] [address] Care Team Providers Care Senior Executive Compensation Analyst Name Role Phone Claritza Winter MARY Primary Care Provider [phone] Encounter Details Date Type Department Care Team (Late st Contact Info) Description 10/08/2019 1:45 PM EDT TH Visit (TeleHealth) Dermatology at [address] [place] [address] Davion Vitale MD [address] [facility], [place] [address] Lupus erythematosus tumidus; Psoriasis Social History Tobacco Use Types Packs/Day Years Used Date Smoking Tobacco: Every Day Smokeless Tobacco: Never Sex and Gender Information Value Date Recorded Sex Assigned at Not on file Gender Identity Not on file Sexual Orientation Not on file documented as of this encounter Progress Notes * Davion Vitale MD - 10/08/2019 1:45 PM EDT Problem: 1. ??Follow-up tumid lupus erythematosus status post 4 months of methotrexate 2. ??On hydroxychloroquine May 2017 through May 2019, unable to tolerate. 3. ??Patient works as an [email or web address] 4. telehealth telephone visit Dari follows up utilizing the [employer] telephone platform. She is tolerating the methotrexate. She has been having flares of it now and again on her chest and back however. Her arms are doing well. She has been taking medications methotrexate on Friday, folic acid daily the rest the week. She does smoke and she smokes 1 pack a day and has for many years. She states overall there has been definite improvement in her skin. Assessment and plan: Tumid lupus erythematosus 1. Improving on methotrexate 2. Patient tolerating well 3. Continue methotrexate taking 6 of the 2.5 mg tablets p.o. once weekly. Take this on Mondays for a 15 mg dose. Dispense # 78 with 0 refills for 3-month supply. Will call this into her [facility] in [facility] 4. Continue folic acid 1 mg every day except for the one day she takes her methotrexate. She was given a one-year supply in May 2019 5. Methotrexate labs obtained on September 29 were within normal limits repeat in 3 months return to clinic with a telephone visit in 3 months. 6. Stressed how cigarette smoking can exacerbate tumid lupus. Encouraged her to try to quit again she is tried a couple times before. She is never tried Chantix and I suggested contacting her PCP or [facility] smoking sensation for help with this. Cc: Claritza Winter APRN documented in this encounter Plan of Treatment Upcoming Encounters Date Type Department Care Team (Late st Contact Info) Description 01/23/2024 9:00 AM EDT Office Visit Dermatology at [place] [address] [place] [address] Davion Vitale MD [address] [facility], [place] [address] documented as of this encounter Visit Diagnoses Diagnosis Lupus erythematosus tumidus Lupus erythematosus Psoriasis Other psoriasis documented in this encounter Care Teams Senior Executive Compensation Analyst Relationship Specialty Start Date End Date Claritza Winter APRN [address] [place] [address] PCP - General Family Medicine 05/22/18 documented as of this encounter
--- OUTSIDE RECORDS SUMMARY | 2024-01-06 02:54 | XMS_ITS | Encounter Summary ---
Author Organization [facility] [place] [address] Care Team Providers Care Boiling Off Winder Name Role Phone Claritza Winter MARY Primary Care Provider [phone] Reason for Visit * Reason Comments Follow-up Encounter Details Date Type Department Care Team (Late st Contact Info) Description 01/19/2021 8:00 AM EDT Office Visit Dermatology at [address] [place] [phone] Davion Vitale MD [address] [facility] [address], [place] [address] Lupus erythematosus tumidus Social History Tobacco Use Types Packs/Day Years Used Date Smoking Tobacco: Every Day Smokeless Tobacco: Never Sex and Gender Information Value Date Recorded Sex Assigned at Not on file Gender Identity Not on file Sexual Orientation Not on file documented as of this encounter Progress Notes * Davion Vitale MD - 01/19/2021 8:00 AM EDT Problem: 1. 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 On chloroquine 250 mg 1 p.o. daily since August 2020 3. ??On hydroxychloroquine ??May 2017??through May 2019,??but??unable to tolerate. 4. ??Patient works as an [employer] follows up and is doing very well. Her tumid lupus is quiesced sent. The glasslike feeling of her skin has resolved on the malar cheeks on her arms forearms. If she is out in the sun unexpectedly she does not have as much reaction as she did before although she tries to avoid sun. The edema in her legs is much better and almost totally resolved. Physical examination reveals a pleasant 49-year-old woman who has no active tumid lupus today. The edema has resolved. 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 Continue methotrexate taking 6 of the 2.5 mill tablets p.o. once weekly for 15 mg dose stress #78 for a 3-month supply to [facility] in [place]. 2. Continue chloroquine 250 mg 1 p.o.daily [...] labs again in 3 months as well. CC: Claritza Winter APRN documented in this encounter Plan of Treatment Upcoming Encounters Date Type Department Care Team (Late st Contact Info) Description 01/23/2024 9:00 AM EDT Office Visit Dermatology at [place] [address] [place] [address] Davion Vitale MD [address] [facility], [place] [address] documented as of this encounter Visit Diagnoses Diagnosis Lupus erythematosus tumidus Lupus erythematosus documented in this encounter Care Teams Boiling Off Winder Relationship Specialty Start Date End Date Claritza Winter APRN [address] [place] [address] PCP - General Family Medicine 05/22/18 documented as of this encounter
--- OUTSIDE RECORDS SUMMARY | 2024-01-06 02:55 | XMS_ITS | Encounter Summary ---
Author Organization [facility] Address [facility] [place] [address] Care Team Providers Care Children Teacher Name Role Phone Georgette Dahl MD Primary Care Provider [phone] Reason for Visit * Reason Comments Skin Check Follow-up Encounter Details Date Type Department Care Team (Late st Contact Info) Description 04/25/2017 3:30 PM EST Office Visit Dermatology at [address] [place] [address] Davion Vitale MD [address] [facility], [place] [address] Dermatitis Social History Tobacco Use Types Packs/Day Years Used Date Smoking Tobacco: Every Day Smokeless Tobacco: Never Sex and Gender Information Value Date Recorded Sex Assigned at Not on file Gender Identity Not on file Sexual Orientation Not on file documented as of this encounter Progress Notes * Davion Vitale MD - 04/25/2017 3:30 PM EST PROBLEM: Follow up dermatitis. Patient is seen on consultation today for Claritza Winter NP. Dari follows up after last seeing me in 2006. At that time she was 35 and had told me that for the last 3-5 years she had had an itchy rash that flared on her arms, chest, and face and upper chest in the warm summer weather in sun exposed areas. I had done a punch biopsy which really showed hypersensitivity reaction with eosinophils. There is no support for connective tissue disease. There is a family history of lupus in the patient's sister and a maternal aunt. Since that time she has stopped ibuprofen, stopped sulindac, but continues to have dermatitis. She states that her current medications are all ones that were started after the dermatitis. 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 She is otherwise in good health. She is a smoker and does smoke 1/2 to 1 pack a day. She in the meantime continues to suffer with the dermatitis flaring in the warm summer months, particularly with sun exposure, and improving somewhat over the winter months. She was seen by Claritza Winter NP, who did a 2 punch biopsies in January, one from the left forearm and one from the right forearm which showed nonspecific changes, possibly including a dermal hypersensitivity reaction. Patient notes that there is no improvement of her dermatitis when she is away from work. At one time she was out for 2 weeks on disability because of throwing her back out. The rash did not alhaji. The rash is described as semi-permanent; it does not come and without within 24 hours; it is quite itchy and does burn and sting. Physical examination reveals a pleasant 46-year-old woman who has erythematous papules and small plaques present over the sun-exposed area of the upper back, upper chest, her dorsal forearms and arms, stopping at the short-sleeve rashaun and totally sparing the volar forearms and volar arm. She has no involvement today of her face. She does have some involvement on the upper chest and on superior breasts. A/P: 15-year dermatitis waxing and waning, inconclusive biopsies. a. Today repeat punch biopsies from new sites on back. Two 4 mm punch biopsies obtained from right upper back, one upper, one inferior back, submitted for pathologic analysis. b. Suture removal in 10-14 days. c. Hopefully, this will provide a new insight into the etiology of her dermatitis. d. The possibility that this might be related to her smoking comes into mind, but otherwise patient denies any homeopathic or naturopathic medications, supplements that she takes. Her medications again postdate the onset of the dermatitis: omeprazole, famotidine, sertraline, levothyroxine, loratadine, and Aleve. Her thyroid tests have been checked and they are fine. She has been tested several times and ANGELA negative. e. Could consider [facility] presentation. cc: Claritza Winter NP documented in this encounter Plan of Treatment Upcoming Encounters Date Type Department Care Team (Late st Contact Info) Description 01/23/2024 9:00 AM EDT Office Visit Dermatology at [place] [address] [facility] [place] [address] Davion Vitale MD [address] [facility] [address], [place] [address] documented as of this encounter Visit Diagnoses Diagnosis Dermatitis Contact dermatitis and other eczema, due to unspecified cause documented in this encounter Care Teams Children Teacher Relationship Specialty Start Date End Date Georgette Dahl MD [address] [place] [address] PCP - General 04/03/10 05/21/18 documented as of this encounter
--- OUTSIDE RECORDS SUMMARY | 2024-01-06 02:55 | XMS_ITS | Encounter Summary ---
Author Organization [facility] Address [facility] [place] [address] Care Team Providers Care English As A Second Language Instructor Name Role Phone Georgette Dahl MD Primary Care Provider [phone] Encounter Details Date Type Department Care Team (Latest Contact Info) Description 04/25/2017 8:21 AM EST - 04/25/2017 11:59 PM EST Hospital Encounter Laboratory [facility] [place] [address] [place] [address] Discharge Disposition: Home Social History Tobacco Use Types Packs/Day Years Used Date Smoking Tobacco: Every Day Smokeless Tobacco: Never Sex and Gender Information Value Date Recorded Sex Assigned at Not on file Gender Identity Not on file Sexual Orientation Not on file documented as of this encounter Medications at Time of Discharge Medication Sig Dispensed Refills Start Date End Date famotidine (PEPCID) 20 mg Tablet 0 04/11/2017 cyclobenzaprine (FLEXERIL) 10 mg Tablet take 1 tablet by mouth every 8 hours if needed 0 03/09/2017 02/05/2022 levothyroxine (SYNTHROID) 137 mcg Tablet 0 04/09/2017 11/25/2017 omeprazole (PRILOSEC) 40 mg Capsule, Delayed Release(E.C.) 0 04/21/2017 06/03/2019 sertraline (ZOLOFT) 25 mg Tablet 0 04/22/2017 06/03/2019 documented as of this encounter Plan of Treatment Upcoming Encounters Date Type Department Care Team (Late st Contact Info) Description 01/23/2024 9:00 AM EDT Office Visit Dermatology at [place] [address] [facility] [place] [address] Davion Vitale MD [address] [facility] [address], REN Higgins DERMATOLOGY [place], [place] [address] documented as of this encounter Procedures Procedure Name Priority Date/Time Associated Diagnosis Comments SURGICAL PATHOLOGY REPORT Routine 04/25/2017 12:00 PM EST documented in this encounter Results * Surgical Pathology Report (04/25/2017 12:00 PM EST) Final Diagnosis [id number] ? Location: [facility]W The signing pathologist has (i) examined the relevant preparation(s) for the specimen(s) and (ii) rendered or confirmed the diagnosis(es). . ?Surgical Pathology DIAGNOSIS A - Skin, right back superior, punch biopsy: Perivascular and periadnexal dermatitis with increased mucin (see discussion). B - Skin, right back inferior, punch biopsy: Perivascular and periadnexal dermatitis with increased mucin (see discussion). Electronically signed by: ??Leticia Sim MD Verified: ??05/09/2017 ?Dermatopathologist Performed at: ??-[facility] Dept. of Pathology, [place], [place] DISCUSSION Overall, the findings are highly suspicious for variants of connective tissue disease, including variants of lupus. ??Different subtypes of lupus are best distinguished clinically. 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 While the findings are supportive of tumid lupus, they are not pathognomonic, and the differential includes other variants of lupus as well as polymorphous light eruption and jessner ??'s lymphocytic infiltrate. These are best excluded clinically. If tumid lupus and other differentials have been excluded, ANGELA negative lupus could be considered. ??But, we note that with the use of contemporary assays, truly ANGELA negative lupus erythematosus appears increasingly rare; in such rare cases, serologic testing for anti-Ro antibodies has been useful. 1) Shasha Shields, et al. ?? 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 Post TW, ed. RFEyeD. [place], [place]: [employer]ik. [email or web address] 2) ??B? ? ?Karlos velez, and Nika Henry Sepp. ??Smoking is highly associated with discoid lupus erythematosus and lupus erythematosus tumidus: analysis of 405 patients. ? Lupus 24.7 (2015): 669-674. 3) Richardson Mckeon, et al. ?? Diagnosis and differential diagnosis of systemic lupus erythematosus in adults ?? . Post TW, ed. RFEyeD. [place], [place]: MaPS [email or web address] MICROSCOPIC DESCRIPTION Both biopsies are somewhat similar in appearance with orthokeratosis and an unremarkable epidermis overlying a dense perivascular and periadnexal, superficial and deep lymphocytic infiltrate. There is a variable amount of increased dermal mucin in association with the inflammation, as confirmed by interpretation of alcian blue stains. ??Prominent interface dermatitis, hyperparakeratosis, follicular plugging or papillary dermal edema are not identified in these slide sections. The majority of the lymphocytes are highlighted by stains for CD3 and CD5. ??A CD79a stain highlights few scattered B lymphocytes. The dermatology note and select medical history have been reviewed. ?This case was also presented at the daily dermatopathology quality control inspector conference for the consensus assessment of connective tissue disease. ADDITIONAL STUDIES Immunohistochemistry Studies: . ADDITIONAL STUDIES Formalin-fixed, paraffin-embedded tissue sections are studied using the polymer technique with appropriate positive and negative controls. ??These IHC studies provide the pathologist with adjunctive diagnostic information. Antibody specificity has been verified by testing antibodies on a series of in-house tissues with known immunohistochemical performance characteristics. The clinical interpretation of any antibody positive staining or its absence is evaluated within the context of clinical presentation, morphology, histopathological criteria and other diagnostic tests. Block ? Antibody ?Result (Positive/Negative) A1 ? CD3 ?Positive (in the lymphocytic infiltrate) A1 ? CD5 ?Positive (in the lymphocytic infiltrate) A1 ? CD79a ?Positive (in rare scattered B lymphocytes) CLINICAL INFORMATION Specimen Submitted: A - Right back superior B - Right back inferior Clinical History: Since approximately 2002 itchy burning papules/plaques on upper back/chest/dorsal arms/not face (photo exposed areas) in a patient with negative Rhesus workup but positive (illegible) of lupus in sister and maternal aunt. Previous [facility] biopsy 2006. David Mendoza [id number]. Clinical Diagnosis: Connective tissue disease v ? SPECIMEN PROCESSING A - Labeled/Fixative: A, formalin. Quantity/Size: Single, 0.4 cm. Tissue Description: Punch of keller-pink skin. Sections/Processing: Bisected. (T1) B - Labeled/Fixative: B, formalin. Quantity/Size: Single, 0.4 cm. Tissue Description: Punch of keller-pink skin. Sections/Processing: Bisected. (T1) ??sns 05/09/2017 6:21 PM EST [facility] SPECIMEN FROM SKIN / Unknown 04/25/2017 12:00 PM EST 04/25/2017 12:00 PM EST SPECIMEN FROM SKIN / Unknown 04/25/2017 12:00 PM EST 04/25/2017 12:00 PM EST Davion Vitale MD PATHOLOGY/CYTOLOGY O RDERABLES Performing Organization Address City/State/[facility] Co de Phone Number [facility] [place] [address] documented in this encounter Visit Diagnoses Not on filedocumented in this encounter Care Teams English As A Second Language Instructor Relationship Specialty Start Date End Date Georgette Dahl MD [address] [place] [address] PCP - General 04/03/10 05/21/18 documented as of this encounter
--- OUTSIDE RECORDS SUMMARY | 2024-01-06 02:55 | XMS_ITS | Encounter Summary ---
Author Organization [facility] [place] [address] Care Team Providers Care Drawer Hardware Worker Name Role Phone Claritza Winter MARY Primary Care Provider [phone] Encounter Details Date Type Department Care Team (Late st Contact Info) Description 08/21/2006 Orders Only Dermatology at [address] [address] Davion Vitale MD [address] [place] [address], [facility] [place] [address] Social History Tobacco Use Types Packs/Day Years [...] AM EDT Office Visit Dermatology at [address] [address] Davion Vitale MD [address] [place] [address], [facility] [place] [address] documented as of this encounter Procedures Procedure Name Priority Date/Time Associated Diagnosis Comments SURGICAL PATHOLOGY REPORT Routine 08/21/2006 9:48 PM EDT documented in this encounter Results * Surgical Pathology Report (08/21/2006 9:48 PM EDT) Surgical Pathology Report [id number] ? Location: The signing pathologist has (i) examined the relevant preparation(s) for the specimen(s) and (ii) rendered or confirmed the diagnosis(es). . ?Pathology Surgical Pathology Final Report Clinical Information Specimen Submitted: A - Rt dorsal forearm: ??punch 4 mm Clinical History: Cyclical annular patches in summer widely, now on forearm. Clinical Diagnosis: Lupus erythematous. Gross Description Labeled/Fixative: ? Labeled with the patient's name and medical record ?number, formalin. Qty/Size/Weight: ?Two punch biopsies, 0.4 cm each. Sections/Processing : ??One is inked black; the other is inked yellow. ?Bisected. ??(T1) ??aje/LJT Microscopic Description Slides reviewed, microscopic description not recorded. Diagnosis Right dorsal forearm, two punch biopsies: ??Superficial and deep perivascular lymphocytic inflammation with eosinophils and occasional microthrombi (see Comment). CR-0 08/25/06 LUÍS 08/26/06 Verified by: ? Carl Mc MD ?Dermatopathologis t ?(Electronic Signature) The attending pathologist whose signature appears on this report has reviewed all diagnostic slides and has edited the gross and/or microscopic portion of the report in rendering the final pathologic diagnosis. Comment A PAS stain for fungi is negative for organisms. ??The findings can be seen with a bite reaction but other forms of hypersensitivity reaction such as to a drug cannot be excluded. ??Occasional microthrombi are present in the superficial dermis; while microthrombi can be seen in bite reactions, the possibility of a coagulopathy cannot be excluded. ??The number of eosinophils present does not support a diagnosis of lupus. ??Drs. Mcguire Reuben, and Rajiv have also reviewed this case and concur with this diagnosis and interpretation. SUSANNAH WHARTON 08/21/2006 9:48 PM EDT Davion Vitale MD PATHOLOGY/CYTOLOGY O [facility] documented in this encounter Visit Diagnoses Not on filedocumented in this encounter Care Teams Drawer Hardware Worker Relationship Specialty Start Date End Date Claritza Winter APRN [address] [place] [address] PCP - General Family Medicine 05/22/18 documented as of this encounter
--- OUTSIDE RECORDS SUMMARY | 2024-01-06 02:55 | XMS_ITS | Encounter Summary ---
Author Organization [facility] Address [facility] [place] [address] Care Team Providers Care Search Engine Optimization Manager Name Role Phone Georgette Dahl MD Primary Care Provider [phone] Reason for Visit * Reason Comments Suture / Staple Removal Encounter Details Date Type Department Care Team (Late st Contact Info) Description 05/08/2017 4:00 PM EST Office Visit Dermatology at [address] [address] Davion Vitale MD [address] [facility], [place] [address] Dermatitis Social History Tobacco Use Types Packs/Day Years Used Date Smoking Tobacco: Every Day Smokeless Tobacco: Never Sex and Gender Information Value Date Recorded Sex Assigned at Not on file Gender Identity Not on file Sexual Orientation Not on file documented as of this encounter Progress Notes * Davion Vitale MD - 05/08/2017 4:00 PM EST PROBLEM: Followup suture removal and biopsy results. Dari follows up and the biopsy results are not yet back from the 2 sites on her back. The dermatitis remains unchanged. Physical examination continues to reveal a pleasant 46-year-old woman who has erythematous papules and small plaques present over the sun-exposed areas of the upper back, upper chest, dorsal forearms and arms, stopping at the short-sleeve rashaun of her arms and totally sparing the volar forearms and volar arm. A/P: 3- to 5-year dermatitis waxing and waning, inconclusive biopsies. a. Today sutures were removed. b. Will track down biopsy results from [facility]. c. No new suggestions, therapeutic interventions recommended today. We will notify patient when these are received. documented in this encounter Plan of Treatment Upcoming Encounters Date Type Department Care Team (Late st Contact Info) Description 01/23/2024 9:00 AM EDT Office Visit Dermatology at [place] [address] [facility] [address] Davion Vitale MD [address] [facility] [address], [place] [address] documented as of this encounter Visit Diagnoses Diagnosis Dermatitis Contact dermatitis and other eczema, due to unspecified cause documented in this encounter Care Teams Search Engine Optimization Manager Relationship Specialty Start Date End Date Georgette Dahl MD [address] [place] [address] PCP - General 04/03/10 05/21/18 documented as of this encounter
--- OUTSIDE RECORDS SUMMARY | 2024-01-06 02:55 | XMS_ITS | Encounter Summary ---
Author Organization [facility] Address [facility] [place] [address] Care Team Providers Care Anthropology Professor Name Role Phone Georgette Dahl MD Primary Care Provider [phone] Reason for Visit * Reason Comments Follow-up Encounter Details Date Type Department Care Team (Late st Contact Info) Description 07/14/2017 4:00 PM EST Office Visit Dermatology at [address] [phone] Davion Vitale MD [address] [place] [address], [place] [address] Lupus erythematosus tumidus Social History Tobacco Use Types Packs/Day Years Used Date Smoking Tobacco: Every Day Smokeless Tobacco: Never Sex and Gender Information Value Date Recorded Sex Assigned at Not on file Gender Identity Not on file Sexual Orientation Not on file documented as of this encounter Progress Notes * Davion Vitale MD - 07/14/2017 4:00 PM EST 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 The erythema is fading on her chest or arms and painfulnodules in her legs are also shrinking in size. She has had some difficulty tolerating the hydroxychloroquine. Actually made her is sick to her stomach when to take the morning dose. She reminds me that she works shift from 6: 30-3: 30. She tries to take a dose in the morning but she does not normally eat breakfast. On an empty stomach she becomes nauseated with the hydroxychloroquine. Then she takes a dose when she gets home from work about 3 in the evening. She goes to bed about 7: 30. Physical examination: Reveals definite fading of the erythematous papules and small plaques over the sun exposed areas of her upper back chest dorsal forearms and arms stopping at the short sleeve rashaun, as before totally sparing the volar forearms and the volar arm. She is no involvement of her face. She has nodules of her legs which were previously sore but now much less so. Assessment plan: Tumid lupus erythematosus, with definite improvement 1. Continue hydroxychloroquine 200 mg 1 p.o. twice daily dispense #60 with 1 refill. 2. Recommend that she start taking this at lunchtime at work when she does have a full meal, and then take an evening dose with her dinner. In this way she should be able to avoid the nausea associated with the morning breakfast dosing and when she does not normally like to eat any breakfast anyway 3. Congratulated patient on her progress with this. She is looking so much better. She has been putting up with this for 15 years and having inconclusive biopsies done. 4. May discontinue her antihistamines famotidine and loratadine. 5. Return to clinic in 2 months for repeat check. Eczematous dermatitis 1. With stress the patient will occasionally get flares of eczema on the popliteal fossa and on herlegs. 2. Discussed how this is different than her tumid lupus 3. Recommend that she use triamcinolone cream which she has at home on a twice daily basis as needed for flares of eczema Cc: Georgette Dahl MD documented in this encounter Plan of Treatment Upcoming Encounters Date Type Department Care Team (Late st Contact Info) Description 01/23/2024 9:00 AM EDT Office Visit Dermatology at [place] [address] [facility] [place] [address] Davion Vitale MD [address] [facility], [place] [address] documented as of this encounter Visit Diagnoses Diagnosis Lupus erythematosus tumidus Lupus erythematosus documented in this encounter Care Teams Anthropology Professor Relationship Specialty Start Date End Date Georgette Dahl MD [address] [place] [address] PCP - General 04/03/10 05/21/18 documented as of this encounter
[2024-01-06 07:56] LABS: HCT 40.3 % (36.0-46.0); HGB 13.2 g/dL (11.2-15.7); MCH 31.2 pg (27.0-33.0); MCHC 32.8 % (32.0-36.0); MCV 95 fL (80-95); MPV 9.4 fL (8.0-11.0); Platelet Count 258 10^3/uL (130-400); RBC 4.23 10^6/uL (3.93-5.22); RDW 14.6 % (11.7-14.6); RDW-SD 51.4 fL; WBC 5.98 10^3/uL (4.4-10.8)
[2024-01-06 08:17] LABS: ALT 45 U/L (14-59); AST 25 U/L (15-37); Albumin 3.4 g/dL (3.4-5.0); Alkaline Phosphatase 87 U/L (46-116); Anion Gap 11.6 mmol/L (3-11); BUN 12 mg/dL (7-18); Bilirubin, Total 0.31 mg/dL (0.2-1.0); CO2 22.4 mmol/L (21.0-32.0); CREATININE 0.9 mg/dL (0.55-1.02); Calcium 8.6 mg/dL (8.5-10.1); Calculated LDL 123 mg/dL (<100); Chloride 106 mmol/L (98-107); Cholesterol 203 mg/dL (<200); Estimated GFR 76.44 (mL/min/1.73m2); Glucose 112 mg/dL (74-106); HDL Cholesterol 48 mg/dL (40-60); Magnesium 1.8 mg/dL (1.8-2.4); Potassium 4.2 mmol/L (3.5-5.1); Sodium 140 mmol/L (136-145); Total Protein 7.3 g/dL (6.4-8.2); Triglyceride 163 mg/dL (<150)
== END 2024-01-06 02:53 | disposition home or self-care (01) ==
LOC: LBO 02:52
PROVIDERS: PCP Nurse Practitioner Family; Visit Provider Dermatology
DX: L93.0 Discoid lupus erythematosus (principal); K30 Functional dyspepsia; E03.9 Hypothyroidism, unspecified; L40.1 Generalized pustular psoriasis; Z79.899 Other long term (current) drug therapy
CPT/HCPCS: 36415; 80053; 80061; 85027; 83735; 84443

== ENCOUNTER 2024-06-28 17:46 | Outpatient (REF) | payer OTHER, SELFPAY ==
[2024-06-28 21:08] LABS: Abs Immature Grans 0.02 10^3/uL (0.0-0.06); Absolute Basophil Count 0.05 10^3/uL (0.0-0.2); Absolute Eosinophil Count 0.26 10^3/uL (0.0-0.7); Absolute Lymphocyte Count 2.89 10^3/uL (1.2-3.4); Absolute Monocyte Count 0.47 10^3/uL (0.1-0.8); Absolute Neutrophil Count 5.93 10^3/uL (1.2-6.7); Basophils % 0.5 %; Eosinophils % 2.7 %; HCT 38.3 % (36.0-46.0); HGB 12.7 g/dL (11.2-15.7); Immature Grans % 0.2 %; MCH 32.3 pg (27.0-33.0); MCHC 33.2 % (32.0-36.0); MCV 98 fL (80-95); MPV 11.3 fL (8.0-11.0); Monocytes % 4.9 %; Neutrophils % 61.7 %; Platelet Count 293 10^3/uL (130-400); RBC 3.93 10^6/uL (3.93-5.22); RDW 14.4 % (11.7-14.6); WBC 9.62 10^3/uL (4.4-10.8)
[2024-06-28 22:02] LABS: ALT 32 U/L (14-59); AST 18 U/L (15-37); Albumin 3.5 g/dL (3.4-5.0); Alkaline Phosphatase 102 U/L (46-116); Anion Gap 9.4 mmol/L (3-11); BUN 13 mg/dL (7-18); Bilirubin, Total 0.16 mg/dL (0.2-1.0); CO2 25.6 mmol/L (21.0-32.0); CREATININE 0.8 mg/dL (0.55-1.02); Calcium 8.7 mg/dL (8.5-10.1); Calculated LDL 93 mg/dL (<100); Chloride 109 mmol/L (98-107); Cholesterol 191 mg/dL (<200); Estimated GFR 88.05 (mL/min/1.73m2); Glucose 92 mg/dL (74-106); HDL Cholesterol 42 mg/dL (40-60); Magnesium 1.9 mg/dL (1.8-2.4); Potassium 4.2 mmol/L (3.5-5.1); Sodium 144 mmol/L (136-145); TSH (W/Ref FT4) 1.36 uIU/mL (0.36-3.74); Triglyceride 280 mg/dL (<150); Vitamin B12 342 pg/mL (193-986)
== END 2024-06-28 17:47 | disposition home or self-care (01) ==
LOC: NCHCN 17:46
PROVIDERS: PCP Nurse Practitioner Family; Visit Provider Nurse Practitioner Family
DX: K30 Functional dyspepsia (principal); R73.03 Prediabetes; E03.9 Hypothyroidism, unspecified; L93.0 Discoid lupus erythematosus; E78.5 Hyperlipidemia, unspecified; R74.9 Abnormal serum enzyme level, unspecified
CPT/HCPCS: 80053; 80061; 82607; 83036; 83735; 84443; 85025

== ENCOUNTER 2025-01-03 04:34 | Outpatient (CLI) | payer OTHER, SELFPAY ==
[2025-01-03 15:19] LABS: HCT 37.4 % (36.0-46.0); HGB 12.5 g/dL (11.2-15.7); MCH 32.5 pg (27.0-33.0); MCHC 33.4 % (32.0-36.0); MCV 97 fL (80-95); MPV 9.4 fL (8.0-11.0); Platelet Count 252 10^3/uL (130-400); RBC 3.85 10^6/uL (3.93-5.22); RDW 14.2 % (11.7-14.6); RDW-SD 50.0 fL; WBC 8.59 10^3/uL (4.4-10.8)
[2025-01-03 16:04] LABS: Cholesterol 200 mg/dL (<200); Triglyceride 252 mg/dL (<150)
[2025-01-03 16:06] LABS: ALT 28 U/L (14-59); AST 15 U/L (15-37); BUN 22 mg/dL (7-18); Estimated GFR 59.71 (mL/min/1.73m2)
== END 2025-01-03 04:35 | disposition home or self-care (01) ==
LOC: LBO 04:34
PROVIDERS: PCP Nurse Practitioner Family; Visit Provider Dermatology
DX: L40.1 Generalized pustular psoriasis (principal); Z79.899 Other long term (current) drug therapy
CPT/HCPCS: 36415; 84520; 85027; 82465; 82565; 84450; 84460; 84478

== ENCOUNTER 2025-01-07 08:47 | Outpatient (REF) | payer OTHER, SELFPAY ==
--- NOTE | 2025-01-07 07:45 | PAPFT_PTH ---
PATIENT: Dari Montano LOC: [facility]#:[id number] AGE/SX: 54/F ROOM: RE01/07/[address]: Claritza Winter : 1970 BED: DIS: 01/07/2025 SPEC #: [id number] RECD: 01/07/25 13:47 STATUS: ELVER RECampos #: [id number] REINA: 01/07/25 07:[address]: Claritza Winter DEPT: [facility] Cytology RECD BY: Claire Leahy Tissues: 1 - CX/ENDOCX FOR PAP SMEARS Procedures: PAP THIN PREP/[facility] Screening HPV DNA PROBE Comments: [id number] (HPV 16 & 18/45)
== END 2025-01-07 08:48 | disposition home or self-care (01) ==
LOC: NCHCN 08:47
PROVIDERS: PCP Nurse Practitioner Family; Visit Provider Nurse Practitioner Family
DX: Z12.4 Encounter for screening for malignant neoplasm of cervix (principal); Z00.00 Encounter for general adult medical examination without abnormal findings; Z01.419 Encounter for gynecological examination (general) (routine) without abnormal findings
CPT/HCPCS: 88142; 87624

== ENCOUNTER 2025-02-02 03:22 | Outpatient (CLI) | payer OTHER, SELFPAY ==
--- NOTE | 2025-02-02 | DI.MAMMO_ITS ---
Exam(s) MAMMO SCREENING EXAM: MAMMO SCREENING CLINICAL HISTORY: SCREENING MAMMO Z12.31 TECHNIQUE: Bilateral full field digital CC and MLO mammographic images were obtained with 3D tomosynthesis and utilizing computer aided detection (CAD). COMPARISON: Comparison is made with prior examinations. FINDINGS: Masses/Architectural Distortion: No suspicious masses or areas of architectural distortion are present. Microcalcifications: No suspicious pleomorphic-type are seen. Skin Thickening/Nipple Retraction: None. IMPRESSION: 1. No significant interval change with no specific features of malignancy noted. 2. Unless there is more urgent need, screening mammography is recommended, as per [place] [employer] guidelines. BI-RADS Category 1 - Negative Breast Density - Category A - The breast are almost entirely fatty. Breast density Category C or D implies that the patient has dense breast tissue. Dense breast tissue can make it harder to find cancer on a mammogram. Dense breast tissue is also associated with an increased risk of breast cancer. This information about the result of the mammogram report was provided to the patient to raise their awareness. Use this report when you speak with the patient about their risks for breast cancer, which includes their family history. At that time, you may recommend additional screening tests (Ultrasound or MRI) as these tests may add significant information. A negative radiographic report should not delay biopsy if a dominant or clinically suspicious mass is present. Up to ten percent of cancers are not identified on mammography. A negative report may reinforce clinical impression. Adenosis and dense breasts may obscure an underlying neoplasm. False positive reports average 6 to 10%. Patient will receive a letter notifying them of these results.
== END 2025-02-02 03:42 ==
PROVIDERS: PCP Nurse Practitioner Family; Visit Provider Nurse Practitioner Family
DX: Z12.31 Encounter for screening mammogram for malignant neoplasm of breast (principal)
CPT/HCPCS: 77063; 77067